=== PATIENT | female | born 1945 | race Caucasian/White ===

== ENCOUNTER 2022-01-05 20:04 | Emergency (ER) | payer OTHER, MEDICAID ==
[~2022-01-05] VITALS: Ht 152.4 cm; Wt 50.0 kg
[~2022-01-05 20:04] MED LIST: ARIP10TA9 PO; ASPI325T8 PO; ASPI81TA50 PO; BACL20TA PO; CALC500T31 PO; CETI10TA74 PO; CLON0.5T PO; CLON1PAT6 TD; DICY20TA PO; DILT120T3 PO; DILT360C PO; DIPH25CA58 PO; DOCU-109 PO; DRON2.5C PO; DRON400T6 PO; DULO60CA7 PO; ESOM40CA PO; FENT1PAT89 TD; FOLI1TAB16 PO; GLYC15DR2 OP; GLYC1SUP23 RC; HYDR-2867 PO; HYDROCORTISONE28 G1 TP; IBUP-1007 PO; IBUP-1027 PO; IBUP-1739 PO; LAMO100T5 PO; LISI20TA18 PO; MAGN296S68 PO; MENT118G TP; METO50TA6 PO; MIRT-36 PO; MULT-245 PO; OMEP20TA8 PO; ONDA4TAB7 PO; OXYC10TA46 PO; OXYC15TA22 PO; PANT40TA77 PO; POLY17PO29 PO; PROM25TA10 PO; QUET25TA5 PO; ROPI1TAB PO; SIME80TA14 PO; SODI30SP NS; TRAZ-118 PO; [UNRECOGNIZED DRUG - CODE] MC
[2022-01-05] MEDS ORDERED: traMADol 50 MG TABLET PO ONE (20:30)
--- NOTE | 2022-01-05 20:37 | PHYS DOC ---
Past Medical History Past Medical History: A-Fib, Anemia, Anxiety, Arthritis, Bipolar, CAD, Co nstipation, Depression, Diverticulitis, GERD, High Cholesterol, Hypertension, Hypothyroid, IBS, Other Additional Past Medical Histor: insomnia,myalgia nos,paranoia,agoraphobia,hypokalemia,RLS,ulcerative coliti Past Surgical History: Appendectomy, , Hysterectomy, Other Additional Past Surgical Histo: Bilat rotator cuff,mult ovarian cysts,colon polyps,D&C x3, Smoking Status: Former Smoker Alcohol Use: None Drug Use: None General Adult EDM: Chief Complaint: BACK PAIN OR INJURY HPI: HPI: Patient is a 76 year old female who presents with here from [facility] after she was in the restroom with nursing staff and she states that her legs gave out in she had a controlled fall. She states that she fell onto her bottom and did not hit her head. She complains of right lower back pain with sharp shooting pain that goes down into the leg. She states that she usually uses a wheelchair to get around due to weakness in her legs. She denies hitting her head, abdominal pain, nausea, vomiting, fever, loss of bowel bladder, urinary symptoms, chest pain, shortness of air, dizziness, headache, syncope, focal weakness, new numbness or tingling. Rates her pain a 7 out of 10 at this time. Patient has a history of A. fib, anemia, anxiety, arthritis, bipolar, CAD, depression, diverticulitis, GERD, high cholesterol, hypertension, hypothyroidism, IBS, appendectomy, , hysterectomy, insomnia, myalgia, paranoia, RLS, hypokalemia, ulcerative colitis, agoraphobia. Review of Systems: Review of Systems: Constitutional: Denies fever or chills. [] Eyes: Denies change in visual acuity. [] HENT: Denies nasal congestion or sore throat. [] Respiratory: Denies cough or shortness of breath. [] Cardiovascular: Denies chest pain or edema. [] GI: Denies abdominal pain, nausea, vomiting, bloody stools or diarrhea. [] : Denies dysuria. [] Musculoskeletal: + Right lower back pain or + right hip joint pain. + Sharp shooting into the right leg pain [] Integument: Denies rash. [] Neurologic: Denies headache, focal weakness or sensory changes. [] Endocrine: Denies polyuria or polydipsia. [] Lymphatic: Denies swollen glands. [] Psychiatric: Denies depression or anxiety. [] Heart Score: C/O Chest Pain: No Current Medications: Current Medications Medications (Trade) Dose Ordered Sig/Eva Start Time Stop Time Status Last Admin Dose Admin Tramadol HCl (Ultram) 50 mg 1X ONCE 01/05/22 20:30 01/05/22 20:31 Allergies: Allergies: Allergies Coded Allergies Type Severity Reaction Last Updated Verified Sulfa (Sulfonamide Antibiotics) Allergy Intermediate 02/23/17 Yes codeine Allergy Intermediate 02/23/17 Yes gold Au 198 Allergy Intermediate 07/31/14 Yes loracarbef Allergy Intermediate 02/23/17 Yes meloxicam Allergy Intermediate 02/23/17 Yes fentanyl Allergy Mild N/V 02/26/17 Yes Pentazocine Lactate Adverse Reaction Intermediate "dizzy" 07/31/14 Yes acetaminophen Adverse Reaction Intermediate liver does not tolerate 07/31/14 Yes clopidogrel bisulfate Adverse Reaction Intermediate bruising 07/31/14 Yes epinephrine Adverse Reaction Intermediate Palpitations 07/31/14 Yes ferrous sulfate Adverse Reaction Intermediate unable to take due to hemochromatosis 07/31/14 Yes gabapentin Adverse Reaction Intermediate "contracts my muscles" 07/31/14 Yes metoclopramide HCl Adverse Reaction Intermediate Nausea and Vomiting 07/31/14 Yes morphine Adverse Reaction Intermediate hallucinations 07/31/14 Yes naproxen Adverse Reaction Intermediate Nausea 07/31/14 Yes Physical Exam: PE: Constitutional: Well developed, well nourished, no acute distress, non-toxic appearance. [] HENT: Normocephalic, atraumatic, bilateral external ears normal, oropharynx moist, no oral exudates, nose normal. [] Eyes: PERRLA, EOMI, conjunctiva normal, no discharge. [] Neck: Normal range of motion, no tenderness, supple, no stridor. [] Cardiovascular:Heart rate regular rhythm, no murmur [] Lungs & Thorax: Bilateral breath sounds clear to auscultation [] Abdomen: Bowel sounds normal, soft, no tenderness, no masses, no pulsatile masses. [] Skin: Warm, dry, no erythema, no rash. [] Back: Right lower back tenderness, no CVA tenderness. [] Extremities: No tenderness, no cyanosis, no clubbing, ROM intact, no edema. [] Neurologic: Alert and oriented X 3, normal motor function, normal sensory function, no focal deficits noted. [] Psychologic: Affect normal, judgement normal, mood normal. [] Current Patient Data: Vital Signs: Vital Signs Date Time Temp Pulse Resp B/P (MAP) Pulse Ox O2 Delivery O2 Flow Rate FiO2 01/05/22 20:10 98.3 70 16 159/71 (100) 93 Room Air 98.3 EKG: EK and read by Dr Epps as Sinus Rhythm and no STEMI Radiology/Procedures: Radiology/Procedures: [] Impression: [facility] [address] [place], [place] [id number] IMAGING REPORT Signed PATIENT: LEILANI SANTANA ACCOUNT: [id number] : 1945 LOCATION: ER AGE: 76 SEX: F EXAM STATUS: REG ER ORD. PHYSICIAN: CHELLY RUBIO APRN REASON: FALL, BACK PAIN PROCEDURE: CT HEAD AND CERVICAL SPINE WO Exam: CT head and cervical spine without contrast INDICATION: Fall, back pain TECHNIQUE: Sequential axial images through the head and cervical spine were obtained without the administration of IV contrast. Exposure: One or more of the following in the visualized dose reduction techniques were utilized for this examination: 1. Automated exposure control 2. Adjustment of the MA and/or KV according to patient size 3. Use of iterative of reconstructive technique Comparisons: None FINDINGS: Head No focal parenchymal lesion or hemorrhage is identified. There is no midline shift or sulcal effacement. Moderate patchy hypodensity in the periventricular white matter. No acute vascular territory infarction is identified. Valerio-white distinction is preserved. The ventricular system is within normal limits without compression hydrocephalus. The basal cisterns are well maintained. The visualized portions of the paranasal sinuses and mastoid air cells are well- pneumatized. No acute fractures. Cervical spine: Posterior cervical fusion hardware noted throughout cervical spine with diffuse laminectomy changes. Vertebral body heights and alignment are well-maintained. Fracture to the cervical spine is not identified. No significant change in cervical spine. Visualized paraspinal soft tissues are unremarkable. IMPRESSION: 1. No acute intracranial abnormality. 2. Negative CT C-spine for acute traumatic injury. Electronically signed by: Cassie Llanos MD (01/05/2022 9:02 PM) [facility] DICTATED and SIGNED BY: CASSIE LLANOS MD DATE: 01/05/[id number] [id number] [place] [address] IMAGING REPORT Signed PATIENT: LEILANI SANTANA ACCOUNT: [id number] : 1945 LOCATION: ER AGE: 76 SEX: F EXAM STATUS: REG ER ORD. PHYSICIAN: CHELLY RUBIO APRN REASON: fall, pain PROCEDURE: HIP BILATERAL WITH PELVIS Pelvis and right hip HISTORY: Pain status post fall AP view the pelvis was obtained as well as AP and frog-leg views right hip There is deformity of the pubic rami bilaterally consistent with old injuries. There is no interpolar cortex suggest acute fracture. The femoral and acetabular relationships are normal. There is gross osteopenia which does limit sensitivity for a possible nondisplaced fracture. IMPRESSION: No acute findings. Electronically signed by: Elvira Ott III, MD (01/05/2022 9:09 PM) [facility] DICTATED and SIGNED BY: ELVIRA OTT III, MD DATE: 01/05/[id number] [address] [id number] IMAGING REPORT Signed PATIENT: LEILANI SANTANA ACCOUNT: [id number] : 1945 LOCATION: ER AGE: 76 SEX: F EXAM STATUS: REG ER ORD. PHYSICIAN: CHELLY RUBIO APRN REASON: fall, pain PROCEDURE: CT LUMBAR SPINE WO CONTRAST Exam: CT of lumbar spine without contrast INDICATION: Fall, pain TECHNIQUE: Sequential axial images through the lumbar spine obtained without IV contrast. Sagittal and coronal reformatted images were reconstructed from the axial data and reviewed. Exposure: One or more of the following in the visualized dose reduction techniques were utilized for this examination: 1. Automated exposure control 2. Adjustment of the MA and/or KV according to patient size 3. Use of iterative of reconstructive technique Comparisons: CT 02/23/2017 FINDINGS: There is a levoconvex curvature lumbar spine. Vertebral body heights are well- maintained. Fracture to the lumbar spine is not identified. Laminectomy changes noted at L2-L5. Multilevel spondylotic change in cervical spine with degenerative disc disease greatest at L2-L3, L3-L4 and L5-S1. Mild bilateral facet arthropathy is noted throughout the lumbar spine. Visualized paraspinal soft tissues are unremarkable. IMPRESSION: Negative CT lumbar spine for acute traumatic injury. Electronically signed by: Cassie Llanos MD (01/05/2022 9:10 PM) [facility] DICTATED and SIGNED BY: CASSIE LLANOS MD DATE: 01/05/[id number] 0 Course & Med Decision Making: Course & Med Decision Making Pertinent Labs and Imaging studies reviewed. (See chart for details) See HPI. Alert and oriented x4. No pain with pelvic rock. No focal bony spinal tenderness. No trauma to the head or face or scalp. Full range of motion the neck without any current pain. No focal weakness. No extremity rotation or shortening. Right lower back tenderness paraspinal. No bruising or trauma seen. X-ray showed no acute findings. CT head and C-spine showed no acute findings. Blood work generally unremarkable. Urinalysis shows no infection. Patient is discharged back to her facility. [] Dragon Disclaimer: Dragon Disclaimer: This electronic medical record was generated, in whole or in part, using a voice recognition dictation system. Departure Departure Impression: Primary Impression: Fall Qualified Codes: W19.XXXA - Unspecified fall, initial encounter Additional Impression: Low back pain Qualified Codes: M54.41 - Lumbago with sciatica, right side Disposition: 01 HOME / SELF CARE / HOMELESS Condition: STABLE Referrals: FELIPE BEASLEY MD (PCP) Patient Instructions: Fall Prevention and Home Safety, Low Back Strain with [facility], Sciatica with [facility] Additional Instructions: Follow-up with primary care provider. Drink plenty of fluids. Take medication as prescribed and with food. If you have sudden loss of bowel and bladder or numbness and tingling or focal weakness on one side return to the emergency room. Scripts Tramadol Hcl (TRAMADOL HCL) 50 Mg Tablet 50 MG PO Q8HRS PRN for PAIN, #10 TAB Prov: CHELLY RUBIO APRN 01/05/22 CHELLY RUBIO APRN Jan 05, 2022 20:37
--- NOTE | 2022-01-05 21:04 | RAD ---
Exam: CT head and cervical spine without contrast INDICATION: Fall, back pain TECHNIQUE: Sequential axial images through the head and cervical spine were obtained without the admi nistration of IV contrast. Exposure: One or more of the following in the visualized dose reduction techniques were utilized for this examination: 1. Automated exposure control 2. Adjustment of the MA and/or KV according to patient size 3. Use of iterative of reconstructive technique Comparisons: None FINDINGS: Head No focal parenchymal lesion or hemorrhage is identified. There is no midline shift or sulcal effaceme nt. Moderate patchy hypodensity in the periventricular white matter. No acute vascular territory infarcti on is identified. Valerio-white distinction is preserved. The ventricular system is within normal limits without compression hydrocephalus. The basal cisterns are well maintained. The visualized portions of the paranasal sinuses and mastoid air cells are well-pneumatized. No acute fractures. Cervical spine: Posterior cervical fusion hardware noted throughout cervical spine with diffuse laminectomy changes. Vertebral body heights and alignment are well-maintained. Fracture to the cervical spine is not identified. No significant change in cervical spine. Visualized paraspinal soft tissues are unremarkable. IMPRESSION: 1. No acute intracranial abnormality. 2. Negative CT C-spine for acute traumatic injury. Electronically signed by: Cassie Pelaez MD (01/05/2022 9:02 PM) [facility]
--- NOTE | 2022-01-05 21:11 | RAD ---
Pelvis and right hip HISTORY: Pain status post fall AP view the pelvis was obtained as well as AP and frog-leg views right hip There is deformity of the pubic rami bilaterally consistent with old injuries. There is no interpolar cortex suggest acute fracture. The femoral and acetabular relationships are normal. There is gross o steopenia which does limit sensitivity for a possible nondisplaced fracture. IMPRESSION: No acute findings. Electronically signed by: Vitaly Light III, MD (01/05/2022 9:09 PM) [facility]
--- NOTE | 2022-01-05 21:12 | RAD ---
Exam: CT of lumbar spine without contrast INDICATION: Fall, pain TECHNIQUE: Sequential axial images through the lumbar spine obtained without IV contrast. Sagittal an d coronal reformatted images were reconstructed from the axial data and reviewed. Exposure: One or more of the following in the visualized dose reduction techniques were utilized for this examination: 1. Automated exposure control 2. Adjustment of the MA and/or KV according to patient size 3. Use of iterative of reconstructive technique Comparisons: CT 02/23/2017 FINDINGS: There is a levoconvex curvature lumbar spine. Vertebral body heights are well-maintained. Fracture to the lumbar spine is not identified. Laminectomy changes noted at L2-L5. Multilevel spondylotic change in cervical spine with degenerative disc disease greatest at L2-L3, L3-L4 and L5-S1. Mild bilateral facet arthropathy is noted throughou t the lumbar spine. Visualized paraspinal soft tissues are unremarkable. IMPRESSION: Negative CT lumbar spine for acute traumatic injury. Electronically signed by: Cassie Pelaez MD (01/05/2022 9:10 PM) [facility]
[2022-01-05 21:23] LABS: BASO # 0.1 x10^3/uL (0.0-0.2); BASO % 1 % (0-3); EOS # 0.5 x10^3/uL (0.0-0.7); EOS % 7 % (0-3); HEMATOCRIT 36.2 % (36.0-47.0); HEMOGLOBIN 11.6 g/dL (12.0-15.5); LYMPH # 1.5 x10^3/uL (1.0-4.8); LYMPH % 20 % (24-48); MEAN CORPUSCULAR HEMOGLOBIN 32 pg (25-35); MEAN CORPUSCULAR HGB CONC 32 g/dL (31-37); MEAN CORPUSCULAR VOLUME 100 fL (79-100); MONO # 0.6 x10^3/uL (0.0-1.1); MONO % 8 % (0-9); NEUT # 4.8 x10^3/uL (1.8-7.7); NEUT % 64 % (31-73); PLATELET COUNT 245 x10^3/uL (140-400); RED BLOOD COUNT 3.62 x10^6/uL (3.50-5.40); RED CELL DISTRIBUTION WIDTH 15.4 % (11.5-14.5); WHITE BLOOD COUNT 7.5 x10^3/uL (4.0-11.0)
[2022-01-05 21:30] VITALS: BP 171/74
[2022-01-05 21:34] LABS: CALCIUM 8.3 mg/dL (8.5-10.1); CREATININE 1.1 mg/dL (0.6-1.0); GFR 48.2; POTASSIUM 4.8 mmol/L (3.5-5.1)
[2022-01-05 21:38] LABS: ALBUMIN 3.3 g/dL (3.4-5.0); TOTAL BILIRUBIN 0.2 mg/dL (0.2-1.0); TOTAL PROTEIN 6.5 g/dL (6.4-8.2)
[2022-01-05 21:40] LABS: CLARITY,URINE CLEAR; COLOR,URINE YELLOW
[2022-01-05 21:41] LABS: BILIRUBIN,URINE NEGATIVE (NEG); NITRITE,URINE NEGATIVE (NEG); PROTEIN,URINE NEGATIVE (NEG-TRACE)
[2022-01-05 21:42] LABS: BACTERIA,URINE 0 /HPF (0-FEW); HYALINE CASTS, URINE FEW /HPF; RBC,URINE OCC /HPF (0-2); WBC,URINE OCC /HPF (0-4)
[2022-01-05] MEDS ORDERED: TRAM50TA PO (22:01)
[2022-01-05] MEDS ORDERED: methylPREDNISolone SOD SUCC PF 125 MG/2 ML VIAL. IV ONE (22:30)
--- NOTE | 2022-01-07 07:28 | EKG ---
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
== END 2022-01-05 22:53 | disposition home or self-care (01) ==
LOC: ER 20:04
DX: M54.41 Lumbago with sciatica, right side (principal); M25.551 Pain in right hip; I48.91 Unspecified atrial fibrillation; F31.9 Bipolar disorder, unspecified; I25.10 Atherosclerotic heart disease of native coronary artery without angina pectoris; K21.9 Gastro-esophageal reflux disease without esophagitis; E03.9 Hypothyroidism, unspecified; E78.00 Pure hypercholesterolemia, unspecified; I10 Essential (primary) hypertension; K58.9 Irritable bowel syndrome, unspecified; Z87.891 Personal history of nicotine dependence; Z90.89 Acquired absence of other organs; Z90.710 Acquired absence of both cervix and uterus; G25.81 Restless legs syndrome; Z88.2 Allergy status to sulfonamides; Z88.1 Allergy status to other antibiotic agents; Z88.4 Allergy status to anesthetic agent; Z88.5 Allergy status to narcotic agent; Z88.8 Allergy status to other drugs, medicaments and biological substances
CPT/HCPCS: 36415; 70450; 72125; 72131; 73521; 80053; 81001; 84484; 85025; 93005; 99285-25

== ENCOUNTER 2022-01-19 13:54 | Inpatient (IN) | payer OTHER, MEDICAID ==
[2022-01-19] VITALS (24 sets, daily range): BP systolic 84–143; BP diastolic 38–64
[~2022-01-19] VITALS: Ht 152.4 cm; Wt 44.8 kg
[~2022-01-19 13:54] MED LIST changes: +TRAM50TA PO
--- NOTE | 2022-01-19 14:31 | PHYS DOC ---
Past Medical History Past Medical History: A-Fib, Anemia, Anxiety, Arthritis, Bipolar, CAD, Co nstipation, Depression, Diverticulitis, GERD, High Cholesterol, Hypertension, Hypothyroid, IBS, Other Additional Past Medical Histor: insomnia,myalgia nos,paranoia,agoraphobia,hypokalemia,RLS,ulcerative coliti Past Surgical History: Appendectomy, , Hysterectomy, Other Additional Past Surgical Histo: Bilat rotator cuff,mult ovarian cysts,colon polyps,D&C x3, Smoking Status: Never Smoker Alcohol Use: None Drug Use: None General Adult EDM: Chief Complaint: DYSPNEA/RESPIRATORY DISTRESS HPI: HPI: Patient is a 76 year old female brought in by EMS from healthcare resort [facility] for respiratory failure. Per EMS, the staff told him that the patient became unresponsive with respiratory distress within the last hour. She has been at this facility for about 2 days. The patient is unresponsive on arrival, I am unable to procure any meaningful information from her directly. I was ultimately able to speak with her brother via phone after resuscitation efforts were completed, and he reports that she had presented to her primary care doctor's office at [facility] for routine appointment, she fell out of the wheelchair, sustained some musculoskeletal injuries and then was admitted to the hospital, she was subsequently sent to rehab after that. He is unsure of what her hospital course was at that time. She was seen here for a fall and discharged home in late December. She reportedly had previously lived at home alone. Other review of systems is unobtainable or significantly limited. Review of Systems: Review of Systems: Review of systems is limited and essentially unobtainable secondary to clinical condition. Please see HPI. Heart Score: C/O Chest Pain: N/A Risk Factors: Risk Factors: DM, Current or recent (<one month) smoker, HTN, HLP, family history of CAD, obesity. Risk Scores: Score 0 - 3: 2.5% MACE over next 6 weeks - Discharge Home Score 4 - 6: 20.3% MACE over next 6 weeks - Admit for Clinical Observation Score 7 - 10: 72.7% MACE over next 6 weeks - Early Invasive Strategies Allergies: Allergies: Allergies Coded Allergies Type Severity Reaction Last Updated Verified Sulfa (Sulfonamide Antibiotics) Allergy Intermediate 02/23/17 Yes codeine Allergy Intermediate 02/23/17 Yes gold Au 198 Allergy Intermediate 07/31/14 Yes loracarbef Allergy Intermediate 02/23/17 Yes meloxicam Allergy Intermediate 02/23/17 Yes fentanyl Allergy Mild N/V 02/26/17 Yes Pentazocine Lactate Adverse Reaction Intermediate "dizzy" 07/31/14 Yes acetaminophen Adverse Reaction Intermediate liver does not tolerate 07/31/14 Yes clopidogrel bisulfate Adverse Reaction Intermediate bruising 07/31/14 Yes epinephrine Adverse Reaction Intermediate Palpitations 07/31/14 Yes ferrous sulfate Adverse Reaction Intermediate unable to take due to hemochromatosis 07/31/14 Yes gabapentin Adverse Reaction Intermediate "contracts my muscles" 07/31/14 Yes metoclopramide HCl Adverse Reaction Intermediate Nausea and Vomiting 07/31/14 Yes morphine Adverse Reaction Intermediate hallucinations 07/31/14 Yes naproxen Adverse Reaction Intermediate Nausea 07/31/14 Yes Physical Exam: PE: Constitutional: Unresponsive, respiratory failure, moribund and acutely ill- appearing HENT: Normocephalic, atraumatic, mucous membranes are tacky. Oropharynx is patent, minimal gag reflex Eyes: Pulls are small but equally, sluggish. No scleral icterus. Conjunctive are pale Neck: [employer] is midline. No meningismus. Cardiovascular:Heart rate regular rhythm, equal bilateral femoral and carotid pulses. Cap refill is delayed bilateral feet and hands. Lungs & Thorax: Agonal respirations on arrival, respiratory failure. No evidence of chest wall trauma noted. Occasional gagging and gurgling respirations. After intubation, bilateral breath sounds are noted. Coarse breath sounds in the right middle lobe and right upper lobes. Equal chest rise. No crepitus or subcutaneous emphysema of the chest or thorax Abdomen: Linda is soft, nondistended, no apparent tenderness to palpation Skin: Skin is pale, poorly perfused, cap refill is delayed. No large open wounds. Back: No deformity, no evidence of acute trauma. Extremities: No deformity, no edema, pelvis is stable. There appears to be a healing bruise of the proximal right humerus and right shoulder, no apparent tenderness to palpation. No evidence of any acute injury or trauma. Neurologic: She is unresponsive, no spontaneous eye opening, no purposeful movement, minimal gag reflex, no evidence of facial asymmetry, she initially does not even localize to pain, after intubation and airway resuscitation, she does appear to localize to pain, sensation appears to be intact, no meaningful verbal responses ever provided. She does appear to move all 4 extremities equally after resuscitation. Psychologic: Unresponsive EKG: EKG: EKG is interpreted at 1724 Rhythm is sinus Rate is 69 bpm [place] is left No STEMI Radiology/Procedures: Radiology/Procedures: IMAGING REPORT Signed PATIENT: LEILANI SANTANA ACCOUNT: [id number] : 1945 LOCATION: ER AGE: 76 SEX: F EXAM STATUS: PRE ER ORD. PHYSICIAN: BETSEY DURAN DO REASON: TUBE PLACEMENT PROCEDURE: PORTABLE CHEST 1V EXAMINATION: XR CHEST 1V. HISTORY: 76 years Female tube placement. . COMPARISON: February 23, 2017. Findings: There is an ET tube placed in good position. The NG tube appears to be coiled within the stomach and terminates in the in the distal stomach. It can be pulled out by 10 cm. There is a right perihilar infiltrate and right basilar atelectasis. There is fullness in the right hilum.The heart size is normal. There is no effusion or pneumothorax. The mediastinum appear unremarkable. Impression: 1. ET tube is in good position. NG tube is in the distal stomach with the loop within the stomach. It can be pulled by 10 cm. 2. Right perihilar infiltrate and basilar atelectasis. There is fullness in the right hilum. Underlying mass or right hilar lymphadenopathy is not excluded. Consider CT chest evaluation with the patient is stable. Electronically signed by: Elvira Ashby MD (01/19/2022 2:32 PM) [id number] DICTATED and SIGNED BY: ELVIRA ASHBY MD DATE: 01/19/22 [id number] 0 Course & Med Decision Making: Course & Med Decision Making Pertinent Labs and Imaging studies reviewed. (See chart for details) The patient is intubated shortly after arrival. Please see associated intubation note for details. There are copious yellow oral and airway secretions that were suctioned. Peripheral IV access was established. She is given multiple IV fluid boluses. She did not produce urine for quite some time, but she finally did produce some urine after 3 L of fluid. Please see associated central venous catheter placement note for details. The patient remained hypotensive, despite fluids. She is started on IV Levophed drip. Empiric antibiotics were ordered, and I had initially ordered IV Zosyn. Pharmacy called and stated that there was a possible contraindication with the questionable Carbapenem allergy that the patient had listed previously. I am unable to corroborate this with the patient. IV cefepime and Flagyl were ordered instead. I contacted Dr. Holden for admission. He accepts the patient. I contacted the patient's brother and informed him of her clinical condition. He affirms full CODE STATUS. He verbalizes understanding of the plan of care and of her clinical condition. Dragon Disclaimer: Dragon Disclaimer: This electronic medical record was generated, in whole or in part, using a voice recognition dictation system. CENTRAL LINE INSERTION: Occupation of Inseamer: Attending Physician PICC Insurance Producer?: No Line exchanged over guidewire?: Yes Central Line Indications: Poor peripheral access, Caustic medication Hand Hygiene Performed?: Yes Maximal sterile barriers used: Mask, Sterile gown, Sterile gloves, Large sterile drape, Cap Skin Preperation: (Check All): Chlorhexidine gluconate Prep dry @ skin punture?: Yes Patient is less than 2 months: No Known allergy to CHG?: No Safety concern in premature in: No Insertion Site: Femoral Antimicrobial catheter used?: Yes Central Line catheter type: Other (specify): (triple lumen CVC) Successful Placement?: Yes Departure Departure Impression: Primary Impression: Acute respiratory failure Additional Impressions: Aspiration pneumonia Hypotension Disposition: 09 ADMITTED INPATIENT Admitting Physician: JOE (Dr. Holden) Condition: CRITICAL Referrals: FELIPE BEASLEY MD (PCP) Intubation Procedure Intubation Procedure Intub Indication: Respiratory failure Consent: Unable to give consent due to emergent nature. Medications Used: see nursing note Procedure: The patient was placed in the appropriate position. She was preoxygenated as much as possible. Intubation was formed using direct laryngoscopy, using a 3-0 Audrey laryngoscope blade. A 7.0 endotracheal tube was used for intubation, the tube was visualized passing through the cords. Initial confirmation of placement included bilateral breath sounds, tube fogging, adequate chest rise, adequate pulse oximetry reading. A chest x-ray to verify correct placement of the tube showed appropriate tube position. The patient tolerated the procedure well. Complications: none. BETSEY DURAN DO Jan 19, 2022 14:31
--- NOTE | 2022-01-19 14:34 | RAD ---
EXAMINATION: XR CHEST 1V. HISTORY: 76 years Female tube placement. . COMPARISON: February 23, 2017. Findings: There is an ET tube placed in good position. The NG tube appears to be coiled within the st omach and terminates in the in the distal stomach. It can be pulled out by 10 cm. There is a right perihilar infiltrate and right basilar atelectasis. There is fullness in the right h ilum.The heart size is normal. There is no effusion or pneumothorax. The mediastinum appear unremarkable. Impression: 1. ET tube is in good position. NG tube is in the distal stomach with the loop within the stomach. It can be pulled by 10 cm. 2. Right perihilar infiltrate and basilar atelectasis. There is fullness in the right hilum. Underlyi ng mass or right hilar lymphadenopathy is not excluded. Consider CT chest evaluation with the patient is stable. Electronically signed by: Julian Ashby MD (01/19/2022 2:32 PM) [id number]
[2022-01-19] MEDS ORDERED: NALOXONE 0.4 MG/ML VIAL. IV ONE ×2 (14:45)
[2022-01-19] MEDS ORDERED: CEFEPIME HCL IV Push 1 GM VIAL. IVP ONE (14:45)
[2022-01-19] MEDS ORDERED: IV NORMAL SALINE 1000ML BAG 1,000 ML IV ONE ×3 (14:45→16:45)
[2022-01-19] MEDS ORDERED: PIPERACILLIN/TAZOBACTAM 3.375 GM in IV NORMAL SALINE 50ML 50 ML IV ONE (14:45)
[2022-01-19] MEDS ORDERED: ETOMIDATE 20 MG/10 ML VIAL. IV ONE (14:45)
[2022-01-19 14:46] LABS: BASO % 0 % (0-3); EOS % 0 % (0-3); HEMATOCRIT 37.7 % (36.0-47.0); HEMOGLOBIN 12.2 g/dL (12.0-15.5); LYMPH # 1.2 x10^3/uL (1.0-4.8); LYMPH % 14 % (24-48); MEAN CORPUSCULAR HEMOGLOBIN 33 pg (25-35); MEAN CORPUSCULAR HGB CONC 32 g/dL (31-37); MEAN CORPUSCULAR VOLUME 102 fL (79-100); MONO # 0.2 x10^3/uL (0.0-1.1); MONO % 3 % (0-9); NEUT # 7.1 x10^3/uL (1.8-7.7); NEUT % 83 % (31-73); PLATELET COUNT 274 x10^3/uL (140-400); RED BLOOD COUNT 3.71 x10^6/uL (3.50-5.40); RED CELL DISTRIBUTION WIDTH 14.2 % (11.5-14.5); WHITE BLOOD COUNT 8.6 x10^3/uL (4.0-11.0)
[2022-01-19 14:53] LABS: BASE EXCESS ABG -4 mmol/L (-3-3); HCO3 ABG 24 mmol/L (21-28); PO2 ABG 84 mmHg (65-108); SAT O2 ABG 93 % (92-99)
[2022-01-19 14:54] LABS: PCO2 ABG 60 mmHg (35-46)
[2022-01-19 14:56] LABS: CALCIUM 8.7 mg/dL (8.5-10.1); CREATININE 1.9 mg/dL (0.6-1.0); GFR 25.6; POTASSIUM 4.5 mmol/L (3.5-5.1)
[2022-01-19 14:59] LABS: PROTHROMBIN TIME PATIENT 17.3 SEC (11.7-14.0)
[2022-01-19 15:03] LABS: ALBUMIN/GLOBULIN RATIO 0.9 (1.0-1.7); MAGNESIUM 2.6 mg/dL (1.8-2.4); TOTAL BILIRUBIN 0.8 mg/dL (0.2-1.0); TOTAL PROTEIN 6.2 g/dL (6.4-8.2)
[2022-01-19] MEDS ORDERED: MIDAZOLAM HCL/PF 5 MG/5 ML VIAL. IVP ONE (16:15)
[2022-01-19] MEDS ORDERED: MIDAZOLAM HCL/PF 5 MG/5 ML VIAL. NS ONE (16:15)
[2022-01-19] MEDS: NOREPINEPHRINE VIAL 8 MG in IV DEXTROSE 5% 250 ML IV PRN (16:56)
[2022-01-19 17:15] LABS: BILIRUBIN,URINE SMALL (NEG); CLARITY,URINE HAZY; COLOR,URINE YELLOW; NITRITE,URINE NEGATIVE (NEG); PH,URINE 5.5 (<5.0-8.0); PROTEIN,URINE >=300 mg/dL (NEG-TRACE)
[2022-01-19 17:17] LABS: HYALINE CASTS, URINE MANY /HPF
[2022-01-19 17:22] LABS: BACTERIA,URINE 0 /HPF (0-FEW); RBC,URINE 0 /HPF (0-2); WBC,URINE >40 /HPF (0-4)
[2022-01-19 17:36] LABS: BASE EXCESS ABG -4 mmol/L (-3-3); HCO3 ABG 22 mmol/L (21-28); PCO2 ABG 48 mmHg (35-46); PO2 ABG 71 mmHg (65-108); SAT O2 ABG 91 % (92-99)
--- NOTE | 2022-01-19 18:31 | NUR ---
PATIENT ARRIVED FROM ED AT 1814. PATIENT ON LEVO GTT, VENT, OG, ROJAS, MONITOR APPLIED.
[2022-01-19] MEDS ORDERED: IOHEXOL 300 MG/ML 100ML VIAL. IV ONE (18:45)
--- NOTE | 2022-01-19 19:04 | PDOC1 ---
History and Physical Date of Service: DOS: DATE: 01/19/22 TIME: 19:04 Chief Complaint: Chief Complain: respiratory failure History of Present Illness: HPI: Patient was intubated and sedated by the time is able to evaluate her thus history from emergency Patient is a 76 year old female brought in by EMS from [facility] for respiratory failure. Per EMS, the staff told him that the patient became unresponsive with respiratory distress within the last hour. She has been at this facility for about 2 days. The patient is unresponsive on arrival, I am unable to procure any meaningful information from her directly. I was ultimately able to speak with her brother via phone after resuscitation efforts were completed, and he reports that she had presented to her primary care doctor's office at [facility] for routine appointment, she fell out of the wheelchair, sustained some musculoskeletal injuries and then was admitted to the hospital, she was subsequently sent to rehab after that. He is unsure of what her hospital course was at that time. She was seen here for a fall and discharged home in late December. She reportedly had previously lived at home alone. Other review of systems is unobtainable or significantly limited. Patient required intubation in the ER. High concern for aspiration pneumonia. Started on broad-spectrum antibiotics Past Medical/Surgical History: PMH/PSH: Past Medical History: A-Fib, Anemia, Anxiety, Arthritis, Bipolar, CAD, Constipation, Depression, Diverticulitis, GERD, High Cholesterol, Hypertension, Hypothyroid, IBS, Other Additional Past Medical Histor: insomnia,myalgia nos,paranoia,agoraphobia,hypokalemia,RLS,ulcerative coliti Past Surgical History: Appendectomy, , Hysterectomy, Other Additional Past Surgical Histo: Bilat rotator cuff,mult ovarian cysts,colon polyps,D&C x3, Smoking Status: Never Smoker Alcohol Use: None Drug Use: None Allergies: Allergies: Coded Allergies: Sulfa (Sulfonamide Antibiotics) (Verified Allergy, Intermediate, 02/23/17) codeine (Verified Allergy, Intermediate, 02/23/17) gold Au 198 (Verified Allergy, Intermediate, 07/31/14) METALS-TESTED AND FOUND ALLERGY TO GOLD loracarbef (Verified Allergy, Intermediate, 02/23/17) meloxicam (Verified Allergy, Intermediate, 02/23/17) fentanyl (Verified Allergy, Mild, N/V, 02/26/17) Pentazocine Lactate (Verified Adverse Reaction, Intermediate, "dizzy", 07/31/14) acetaminophen (Verified Adverse Reaction, Intermediate, liver does not tolerate, 07/31/14) clopidogrel bisulfate (Verified Adverse Reaction, Intermediate, bruising, 07/31/14) epinephrine (Verified Adverse Reaction, Intermediate, Palpitations, 07/31/14) ferrous sulfate (Verified Adverse Reaction, Intermediate, unable to take due to hemochromatosis, 07/31/14) gabapentin (Verified Adverse Reaction, Intermediate, "contracts my muscles", 07/31/14) metoclopramide HCl (Verified Adverse Reaction, Intermediate, Nausea and Vomiting, 07/31/14) morphine (Verified Adverse Reaction, Intermediate, hallucinations, 07/31/14) naproxen (Verified Adverse Reaction, Intermediate, Nausea, 07/31/14) Family History: Family History: Cannot obtain from patient Current Medications: Current Medications Current Medications Sodium Chloride 1,000 ml @ 1,000 mls/hr 1X ONCE IV Last administered on 01/19/22at 13:55; Start 01/19/22 at 14:45; Stop 01/19/22 at 15:44; Status DC Sodium Chloride 1,000 ml @ 1,000 mls/hr 1X ONCE IV Last administered on at 14:05; Start 01/19/22 at 14:45; Stop 01/19/22 at 15:44; Status DC Naloxone HCl (Narcan) 0.4 mg 1X ONCE IV Last administered on 01/19/22at 13:55; Start 01/19/22 at 14:45; Stop 01/19/22 at 14:46; Status DC Naloxone HCl (Narcan) 0.4 mg 1X ONCE IV Last administered on 01/19/22at 13:59; Start 01/19/22 at 14:45; Stop 01/19/22 at 14:46; Status DC Etomidate (Amidate) 20 mg 1X ONCE IV Last administered on 01/19/22at 14:01; Start 01/19/22 at 14:45; Stop 01/19/22 at 14:46; Status DC Piperacillin Sod/ Tazobactam Sod 3.375 gm/Sodium Chloride 50 ml @ 100 mls/hr 1X ONCE IV ; Start 01/19/22 at 14:45; Stop 01/19/22 at 15:14; Status UNV Cefepime HCl (Maxipime) 1 gm 1X ONCE IVP Last administered on 01/19/22at 15:30; Start 01/19/22 at 14:45; Stop 01/19/22 at 14:46; Status DC Metronidazole 100 ml @ 100 mls/hr 1X ONCE IV Last administered on 01/19/22at 16:01; Start 01/19/22 at 14:45; Stop 01/19/22 at 15:44; Status DC Midazolam HCl (Versed) 5 mg 1X ONCE NS Last administered on 01/19/22at 14:21; Start 01/19/22 at 16:15; Stop 01/19/22 at 16:16; Status DC Midazolam HCl (Versed) 5 mg 1X ONCE IVP Last administered on 01/19/22at 16:00; Start 01/19/22 at 16:15; Stop 01/19/22 at 16:16; Status DC Sodium Chloride 1,000 ml @ 1,000 mls/hr 1X ONCE IV Last administered on 01/19/22at 15:10; Start 01/19/22 at 16:45; Stop 01/19/22 at 17:44; Status DC Norepinephrine Bitartrate 8 mg/ Dextrose 258 ml @ 7.082 mls/ hr CONT PRN IV PER PROTOCOL Last administered on 01/19/22at 16:56; Start 01/19/22 at 16:45 Iohexol (Omnipaque 300 Mg/ml) 75 ml 1X ONCE IV ; Start 01/19/22 at 18:45; Stop 01/19/22 at 18:46; Status Cancel Active Scripts Active ROS: Review of Systems Review of System Cannot obtain from patient Physical Exam: Vital Signs: Vital Signs Date Time Temp Pulse Resp B/P (MAP) Pulse Ox O2 Delivery O2 Flow Rate FiO2 01/19/22 18:55 108/44 01/19/22 18:10 99.0 72 95 Ventilator 99.0 01/19/22 13:54 14 Physcial Exam: GEN: Intubated sedated HEENT: Normal cephalic, atraumatic, external auditory canals are patent EYES: Extraocular muscles are intact, pupil are equally round and reactive to light and accommodation MUSCULOSKELETAL: Appears malnourished ENDOCRINE: No thyromegaly was palpated LYMPHATICS: No cervical chain or axillary nodes were noted HEMATOPOIETIC: No bruising NECK: Supple, no JVD, no thyromegaly was noted LUNGS: Decreased air entry throughout HEART: RRR, S1, S2 present. Peripheral pulses intact, no obvious murmurs noted ABDOMEN: Soft, nontender. Positive bowel sounds, no organomegaly, normal bowel sounds EXTREMITIES: Without clubbing, cyanosis, or edema. Pedal pulses intact. Negative Homans sign NEUROLOGIC: Normal speech and tone. A&O x 3, moves all extremities, no obvious focal deficits PSYCHIATRIC: Normal affect, normal mood. Stable SKIN: No ulcerations or rashes, good skin turgor, no jaundice VASCULAR: Good capillary refill, neurovascular bundle appears to be intact Labs: Labs: Laboratory Tests Test 01/19/22 14:05 01/19/22 14:45 01/19/22 17:05 01/19/22 17:23 White Blood Count 8.6 x10^3/uL (4.0-11.0) Red Blood Count 3.71 x10^6/uL (3.50-5.40) Hemoglobin 12.2 g/dL (12.0-15.5) Hematocrit 37.7 % (36.0-47.0) Mean Corpuscular Volume 102 fL (79-100) Mean Corpuscular Hemoglobin 33 pg (25-35) Mean Corpuscular Hemoglobin Concent 32 g/dL (31-37) Red Cell Distribution Width 14.2 % (11.5-14.5) Platelet Count 274 x10^3/uL (140-400) Neutrophils (%) (Auto) 83 % (31-73) Lymphocytes (%) (Auto) 14 % (24-48) Monocytes (%) (Auto) 3 % (0-9) Eosinophils (%) (Auto) 0 % (0-3) Basophils (%) (Auto) 0 % (0-3) Neutrophils # (Auto) 7.1 x10^3/uL (1.8-7.7) Lymphocytes # (Auto) 1.2 x10^3/uL (1.0-4.8) Monocytes # (Auto) 0.2 x10^3/uL (0.0-1.1) Eosinophils # (Auto) 0.0 x10^3/uL (0.0-0.7) Basophils # (Auto) 0.0 x10^3/uL (0.0-0.2) Prothrombin Time 17.3 SEC (11.7-14.0) Prothromb Time International Ratio 1.4 (0.8-1.1) Activated Partial Thromboplast Time 35 SEC (24-38) Sodium Level 142 mmol/L (136-145) Potassium Level 4.5 mmol/L (3.5-5.1) Chloride Level 100 mmol/L (98-107) Carbon Dioxide Level 34 mmol/L (21-32) Anion Gap 8 (6-14) Blood Urea Nitrogen 59 mg/dL (7-20) Creatinine 1.9 mg/dL (0.6-1.0) Estimated GFR (Cockcroft-Gault) 25.6 BUN/Creatinine Ratio 31 (6-20) Glucose Level 141 mg/dL (70-99) Lactic Acid Level 1.8 mmol/L (0.4-2.0) Calcium Level 8.7 mg/dL (8.5-10.1) Magnesium Level 2.6 mg/dL (1.8-2.4) Total Bilirubin 0.8 mg/dL (0.2-1.0) Aspartate Amino Transf (AST/SGOT) 39 U/L (15-37) Alanine Aminotransferase (ALT/SGPT) 33 U/L (14-59) Alkaline Phosphatase 114 U/L (46-116) Troponin I High Sensitivity 24 ng/L (4-50) NV-Cqy-T-Type Natriuretic Peptide 451 pg/mL (0-449) Total Protein 6.2 g/dL (6.4-8.2) Albumin 3.0 g/dL (3.4-5.0) Albumin/Globulin Ratio 0.9 (1.0-1.7) O2 Saturation 93 % (92-99) 91 % (92-99) Arterial Blood pH 7.22 (7.35-7.45) 7.29 (7.35-7.45) Arterial Blood pCO2 at Patient Temp 60 mmHg (35-46) 48 mmHg (35-46) Arterial Blood pO2 at Patient Temp 84 mmHg (65-108) 71 mmHg (65-108) Arterial Blood HCO3 24 mmol/L (21-28) 22 mmol/L (21-28) Arterial Blood Base Excess -4 mmol/L (-3-3) -4 mmol/L (-3-3) FiO2 100% vent 100% vent Urine Collection Type Unknown Urine Color Yellow Urine Clarity Hazy Urine pH 5.5 (<5.0-8.0) Urine Specific [place] 1.020 (1.000-1.030) Urine Protein >=300 mg/dL (NEG-TRACE) Urine Glucose (UA) Negative mg/dL (NEG) Urine Ketones (Stick) Negative mg/dL (NEG) Urine Blood Small (NEG) Urine Nitrite Negative (NEG) Urine Bilirubin Small (NEG) Urine Urobilinogen Dipstick 2.0 mg/dL (0.2 mg/dL) Urine Leukocyte Esterase Small (NEG) Urine RBC 0 /HPF (0-2) Urine WBC >40 /HPF (0-4) Urine Squamous Epithelial Cells Few /LPF Urine Transitional Epithelial Cells Many /LPF Urine Renal Epithelial Cells Occ /LPF Urine Bacteria 0 /HPF (0-FEW) Urine Hyaline Casts Many /HPF Urine Mucus Marked /LPF Laboratory Tests Test 01/19/22 14:05 01/19/22 14:45 01/19/22 17:05 01/19/22 17:23 White Blood Count 8.6 x10^3/uL (4.0-11.0) Red Blood Count 3.71 x10^6/uL (3.50-5.40) Hemoglobin 12.2 g/dL (12.0-15.5) Hematocrit 37.7 % (36.0-47.0) Mean Corpuscular Volume 102 fL (79-100) Mean Corpuscular Hemoglobin 33 pg (25-35) Mean Corpuscular Hemoglobin Concent 32 g/dL (31-37) Red Cell Distribution Width 14.2 % (11.5-14.5) Platelet Count 274 x10^3/uL (140-400) Neutrophils (%) (Auto) 83 % (31-73) Lymphocytes (%) (Auto) 14 % (24-48) Monocytes (%) (Auto) 3 % (0-9) Eosinophils (%) (Auto) 0 % (0-3) Basophils (%) (Auto) 0 % (0-3) Neutrophils # (Auto) 7.1 x10^3/uL (1.8-7.7) Lymphocytes # (Auto) 1.2 x10^3/uL (1.0-4.8) Monocytes # (Auto) 0.2 x10^3/uL (0.0-1.1) Eosinophils # (Auto) 0.0 x10^3/uL (0.0-0.7) Basophils # (Auto) 0.0 x10^3/uL (0.0-0.2) Prothrombin Time 17.3 SEC (11.7-14.0) Prothromb Time International Ratio 1.4 (0.8-1.1) Activated Partial Thromboplast Time 35 SEC (24-38) Sodium Level 142 mmol/L (136-145) Potassium Level 4.5 mmol/L (3.5-5.1) Chloride Level 100 mmol/L (98-107) Carbon Dioxide Level 34 mmol/L (21-32) Anion Gap 8 (6-14) Blood Urea Nitrogen 59 mg/dL (7-20) Creatinine 1.9 mg/dL (0.6-1.0) Estimated GFR (Cockcroft-Gault) 25.6 BUN/Creatinine Ratio 31 (6-20) Glucose Level 141 mg/dL (70-99) Lactic Acid Level 1.8 mmol/L (0.4-2.0) Calcium Level 8.7 mg/dL (8.5-10.1) Magnesium Level 2.6 mg/dL (1.8-2.4) Total Bilirubin 0.8 mg/dL (0.2-1.0) Aspartate Amino Transf (AST/SGOT) 39 U/L (15-37) Alanine Aminotransferase (ALT/SGPT) 33 U/L (14-59) Alkaline Phosphatase 114 U/L (46-116) Troponin I High Sensitivity 24 ng/L (4-50) EM-Zcn-L-Type Natriuretic Peptide 451 pg/mL (0-449) Total Protein 6.2 g/dL (6.4-8.2) Albumin 3.0 g/dL (3.4-5.0) Albumin/Globulin Ratio 0.9 (1.0-1.7) O2 Saturation 93 % (92-99) 91 % (92-99) Arterial Blood pH 7.22 (7.35-7.45) 7.29 (7.35-7.45) Arterial Blood pCO2 at Patient Temp 60 mmHg (35-46) 48 mmHg (35-46) Arterial Blood pO2 at Patient Temp 84 mmHg (65-108) 71 mmHg (65-108) Arterial Blood HCO3 24 mmol/L (21-28) 22 mmol/L (21-28) Arterial Blood Base Excess -4 mmol/L (-3-3) -4 mmol/L (-3-3) FiO2 100% vent 100% vent Urine Collection Type Unknown Urine Color Yellow Urine Clarity Hazy Urine pH 5.5 (<5.0-8.0) Urine Specific [place] 1.020 (1.000-1.030) Urine Protein >=300 mg/dL (NEG-TRACE) Urine Glucose (UA) Negative mg/dL (NEG) Urine Ketones (Stick) Negative mg/dL (NEG) Urine Blood Small (NEG) Urine Nitrite Negative (NEG) Urine Bilirubin Small (NEG) Urine Urobilinogen Dipstick 2.0 mg/dL (0.2 mg/dL) Urine Leukocyte Esterase Small (NEG) Urine RBC 0 /HPF (0-2) Urine WBC >40 /HPF (0-4) Urine Squamous Epithelial Cells Few /LPF Urine Transitional Epithelial Cells Many /LPF Urine Renal Epithelial Cells Occ /LPF Urine Bacteria 0 /HPF (0-FEW) Urine Hyaline Casts Many /HPF Urine Mucus Marked /LPF Assessment/Plan Assessment/Plan Acute hypoxic respiratory failure secondary to suspected aspiration pneumonia versus CAP, history of A. fib anxiety bipolar CAD depression GERD hypertension hyperlipidemia hypothyroid -[facility] from [facility] for worsening respiratory failure. Based upon report seems patient has been on decline for a few months -Required intubation in the emergency room. Concern for aspiration pneumonia there -Wide range of antibiotic allergies. Cefepime Flagyl received in ED will continue this for now; will also add on doxycycline -We will try to obtain more history from family in the morning -We will continue home meds as indicated -Pulmonary consult for vent management -DVT prophylaxis -N.p.o. Justifications for Admission Other Justification HEATHER TAN MD Jan 19, 2022 19:04
[2022-01-19] MEDS ORDERED: TRAM50TA PO (19:05)
[2022-01-19] MEDS ORDERED: MENT3.5O TP (19:05)
[2022-01-19] MEDS ORDERED: LIDO700A21 TP (19:05)
[2022-01-19] MEDS ORDERED: PRAV20TA2 PO (19:05)
[2022-01-19] MEDS ORDERED: APIX5TAB PO (19:05)
[2022-01-19] MEDS ORDERED: ROPI1TAB4 PO (19:05)
[2022-01-19] MEDS ORDERED: CARV25TA2 PO (19:05)
[2022-01-19] MEDS ORDERED: ONDA-84 PO (19:05)
[2022-01-19] MEDS ORDERED: ROPI4TAB10 PO (19:05)
[2022-01-19] MEDS ORDERED: DRON400T6 PO (19:05)
[2022-01-19] MEDS ORDERED: LAMO150T4 PO (19:05)
[2022-01-19] MEDS ORDERED: SENN-37 PO (19:05)
[2022-01-19] MEDS ORDERED: ACET325T21 PO (19:05)
[2022-01-19] MEDS ORDERED: FLUT9.9S NS (19:05)
[2022-01-19] MEDS ORDERED: SIME80TA14 PO (19:05)
[2022-01-19] MEDS ORDERED: ESTR42.53 VG (19:05)
[2022-01-19] MEDS ORDERED: LISI20TA18 PO (19:05)
[2022-01-19] MEDS ORDERED: CARB15DR65 EACHEYE (19:05)
[2022-01-19] MEDS ORDERED: MELA3TAB4 PO (19:05)
[2022-01-19] MEDS ORDERED: TIZA2CAP PO (19:05)
[2022-01-19] MEDS ORDERED: FAMO-63 PO (19:05)
[2022-01-19] MEDS ORDERED: MIRT-8 PO (19:05)
[2022-01-19] MEDS ORDERED: POLY2500 PO (19:05)
[2022-01-19] MEDS ORDERED: RISP0.5T24 PO ×2 (19:05)
[2022-01-19] MEDS ORDERED: PIP/TAZO PER PHARMACY MC PRN (19:15)
[2022-01-19] MEDS ORDERED: ACETAMINOPHEN 325 MG TABLET. PO PRN (19:15)
[2022-01-19] MEDS ORDERED: 0.9 % SODIUM CHLORIDE 10 ML DISP.SYRIN. IV PRN (19:15)
[2022-01-19] MEDS ORDERED: ONDANSETRON PF 4 MG/2 ML VIAL. IVP PRN (19:15)
[2022-01-19] MEDS ORDERED: MIDAZOLAM HCL/PF 2 MG/2 ML VIAL. IV PRN (20:00)
[2022-01-19] MEDS: SENNOSIDES/DOCUSATE 8.6/50MG TABLET. PO SCH (21:00)
[2022-01-19] MEDS: DOXYCYCLINE HYCLATE 100 MG in IV DEXTROSE 5% 100ML 100 ML IV SCH (21:12)
[2022-01-19] MEDS: FAMOTIDINE 20 MG/2 ML VIAL IVP SCH (21:13)
[2022-01-19] MEDS: cefTRIAXone IV Push 1 GM VIAL. IVP SCH (21:13)
[2022-01-19] MEDS: HEPARIN for SUB-Q USE 5,000 UNIT/ML VIAL. SQ SCH (21:14)
[2022-01-20] VITALS (33 sets, daily range): BP systolic 98–173; BP diastolic 41–70
[2022-01-20] MEDS: NOREPINEPHRINE VIAL 8 MG in IV DEXTROSE 5% 250 ML IV PRN ×2 (01:23→13:31)
--- NOTE | 2022-01-20 02:33 | EKG ---
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
[2022-01-20 05:12] LABS: CALCIUM 7.8 mg/dL (8.5-10.1); CREATININE 1.2 mg/dL (0.6-1.0); GFR 43.6; POTASSIUM 3.6 mmol/L (3.5-5.1)
[2022-01-20] MEDS: HEPARIN for SUB-Q USE 5,000 UNIT/ML VIAL. SQ SCH (06:12)
[2022-01-20] MEDS: CARVEDILOL 12.5 MG TABLET. PO SCH ×2 (08:30→17:00)
[2022-01-20 08:47] LABS: BASE EXCESS ABG -2 mmol/L (-3-3); HCO3 ABG 22 mmol/L (21-28); PCO2 ABG 36 mmHg (35-46); PO2 ABG 170 mmHg (65-108); SAT O2 ABG 99 % (92-99)
[2022-01-20 08:54] LABS: FIO2 ABG 100
[2022-01-20] MEDS: DRONEDARONE HCL 400 MG TABLET PO SCH ×2 (09:00→21:10)
[2022-01-20] MEDS: SENNOSIDES/DOCUSATE 8.6/50MG TABLET. PO SCH ×2 (09:00→21:11)
[2022-01-20] MEDS ORDERED: risperiDONE 1 MG TABLET. PO SCH (09:00)
[2022-01-20] MEDS: ELECTROLYTE (ICU) PROTOCOL. MC SCH (09:00)
[2022-01-20] MEDS: LISINOPRIL 20 MG TABLET PO SCH ×2 (09:00→21:10)
[2022-01-20] MEDS: DOXYCYCLINE HYCLATE 100 MG in IV DEXTROSE 5% 100ML 100 ML IV SCH ×2 (09:10→21:12)
[2022-01-20] MEDS: lamoTRIgine 100 MG TABLET. PO SCH (09:10)
[2022-01-20] MEDS: APIXABAN 5 MG TABLET. PO SCH ×2 (09:10→21:11)
[2022-01-20] MEDS: risperiDONE 1 MG TABLET. PO SCH ×3 (09:11→21:11)
--- NOTE | 2022-01-20 10:41 | CONS ---
DATE OF CONSULTATION: 01/20/2022 PULMONARY CONSULTATION ATTENDING PHYSICIAN: Mak Holden MD REASON FOR CONSULTATION: Respiratory failure. HISTORY OF PRESENT ILLNESS: The patient is a 76-year-old female who was [facility] for respiratory failure. The patient was unresponsive. She also developed increased respiratory distress. She was seen in the Emergency Room. She was intubated. They found some orange juice in her endotracheal tube. The patient's medications were reviewed from the [facility] facility. She is on Eliquis. In addition, she was also taking tramadol, mirtazapine, lamotrigine, Risperdal and lidocaine patch for pain. The patient's arterial blood gases were reviewed on admission and they showed a pH of 7.22, pCO2 of 60 and a pO2 of 84 with a bicarbonate of 24. This was obtained on 100% FiO2. Her latest ABGs showed a pH of 7.40, pCO2 of 36 and a pO2 of 170. This is on 100% FiO2. When I saw the patient, her saturations were 87-88 while on 40% FiO2. I have increased FiO2 to 60%. She is receiving low dose Levophed. She opens her eyes, but does not track much. PAST MEDICAL HISTORY: Significant for history of atrial fibrillation, on chronic anticoagulation, history of anemia, anxiety, arthritis, bipolar, CAD, constipation, depression, diverticulitis. PAST SURGICAL HISTORY: Appendectomy, and many others as reported in [facility]. SOCIAL HISTORY: Nonsmoker. ALLERGIES: All reviewed as listed in the MRAD. MEDICATIONS: All reviewed as listed in the MRAD including antibiotics. REVIEW OF SYSTEMS: Unable to obtain as she is on the ventilator. PHYSICAL EXAMINATION: VITAL SIGNS: Reviewed. Blood pressure 131 systolic on Levophed low dose. She has a T-max of 99.9. Blood pressure 113/48. She is currently on low dose Levophed. NECK: Supple. LUNGS: With diminished breath sounds anteriorly. CARDIOVASCULAR: With a regular rate. ABDOMEN: Soft, nontender. EXTREMITIES: With no pitting edema. LABORATORY DATA: Labs are reviewed. ABGs are discussed in my history of present illness. BUN and creatinine was 59 and 1.9, now down to 50 and 1.2. Albumin 3.0. INR 1.4. White cell count 8.6, hemoglobin 12.2 and platelets are 274. IMAGING DATA: Chest x-ray reviewed. Endotracheal tube in satisfactory position. There is a right upper lobe and right perihilar infiltrate. There is fullness on the right hilum. IMPRESSION: 1. Acute hypercapnic and hypoxic respiratory failure secondary to the sedative effect of multiple medications. In addition, she likely had aspirated. 2. Abnormal chest x-ray with infiltrates in the right upper and right perihilar area and some right hilar fullness. Likely aspiration. Cannot exclude mass in the right hilar area. We will consider CAT scan once she is more stable. 3. Acute kidney injury/hypovolemic shock. 4. No significant tobacco history. RECOMMENDATIONS: 1. Discussed with RN and RT. We will continue present assist control mode. I have increased FiO2 to 60%. We will avoid any further sedation. Use Precedex if needed. 2. Continue with present antibiotics. 3. IV hydration to see an improvement in her BUN and creatinine. 4. Wean Levophed off once blood pressure stays above systolic 90. 5. We will have to reassess her home medications to avoid any further sedative effects in future. 6. Stress ulcer prophylaxis. 7. DVT prophylaxis with subcutaneous heparin. 8. Discussed with RN and we will follow along with you. Chart reviewed, imaging studies reviewed. Total critical care time [address]: PATTI/neema TID: [id number]
--- NOTE | 2022-01-20 14:17 | NUR ---
SS following for discharge planning. SS reviewed pt chart and discussed with pt RN. Pt is currently on the vent at 60%. Pt is assisted living resident from [facility], ; fax [phone]. Pt on Levophed and IV Fluids. Pt on IV Doxycycline and IV Rocephin. Pulmonology following. SS will continue to follow for discharge planning.
[2022-01-20] MEDS: POLYVINYL ALCOHOL 1.4% OPHTH SOLUTION 15ML BOTTLE. OU SCH (14:55)
[2022-01-20] MEDS ORDERED: ATROPINE 0.5 MG/5 ML DISP.SYRINGE. IV PRN (16:30)
[2022-01-20] MEDS ORDERED: IV NORMAL SALINE 500ML BAG 500 ML IV PRN (16:30)
[2022-01-20] MEDS: DEXMEDETOMIDINE 400 MCG in IV NORMAL SALINE 100ML 96 ML IV PRN (18:46)
--- NOTE | 2022-01-20 19:11 | NUR ---
Spoke with Dr. Wang earlier because pt was restless. He gave order for Precedex and to refrain from using other sedatives if possible. Precedex started per order and pt tolerating well. Levophed gtt has been able to titrate off today and pt is also tolerating well..
--- NOTE | 2022-01-20 19:39 | PDOC ---
[employer] PROGRESS NOTE Date of Service DOS: DATE: 01/20/22 TIME: 19:37 Chief Complaint Chief Complaint Acute hypoxic respiratory failure secondary to suspected aspiration pneumonia versus CAP, history of A. fib anxiety bipolar CAD depression GERD hypertension hyperlipidemia hypothyroid -[facility] for worsening respiratory failure. Based upon report seems patient has been on decline for a few months -Required intubation in the emergency room. Concern for aspiration pneumonia there -Wide range of antibiotic allergies. Cefepime Flagyl received in ED will continue this for now; will also add on doxycycline -We will continue home meds as indicated, avoid overly sedative medications -Pulmonary consult for vent management -DVT prophylaxis -N.p.o. History of Present Illness History of Present Illness 01/20 Patient evaluated examined at bedside. Notably more alert from yesterday today but still intubated. She has had a lot of secretions out of her ET tube. Continue present antibiotics. Remains on Levophed. Try to wean off as tolerated. Pulmonary consulted and evaluated. Continue intubation for now. Discussed with pulmonary physician. Discussed with bedside RN. 35min CC time Vitals/I&O Vitals/I&O: Vital Signs Date Time Temp Pulse Resp B/P (MAP) Pulse Ox O2 Delivery O2 Flow Rate FiO2 01/20/22 18:05 97 Ventilator 01/20/22 18:00 56 20 111/46 01/20/22 04:00 99.9 99.9 01/19/22 14:10 15.0 I & O 01/19/22 01/19/22 01/20/22 15:00 23:00 07:00 Intake Total 1000 ml 2100 ml 449.3 ml Output Total 180 ml 450 ml Balance 1000 ml 1920 ml -0.7 ml Physical Exam General: Alert, Cooperative Heart: Regular rate Lungs: Other (decreased throughout) Abdomen: Normal bowel sounds, Soft, No tenderness Extremities: No edema, Normal pulses Skin: No significant lesion Labs Labs: Laboratory Tests Test 01/20/22 03:40 01/20/22 08:40 Sodium Level 141 mmol/L (136-145) Potassium Level 3.6 mmol/L (3.5-5.1) Chloride Level 108 mmol/L (98-107) Carbon Dioxide Level 24 mmol/L (21-32) Anion Gap 9 (6-14) Blood Urea Nitrogen 50 mg/dL (7-20) Creatinine 1.2 mg/dL (0.6-1.0) Estimated GFR (Cockcroft-Gault) 43.6 Glucose Level 118 mg/dL (70-99) Calcium Level 7.8 mg/dL (8.5-10.1) O2 Saturation 99 % (92-99) Arterial Blood pH 7.40 (7.35-7.45) Arterial Blood pCO2 at Patient Temp 36 mmHg (35-46) Arterial Blood pO2 at Patient Temp 170 mmHg (65-108) Arterial Blood HCO3 22 mmol/L (21-28) Arterial Blood Base Excess -2 mmol/L (-3-3) FiO2 100 Assessment and Plan Assessmemt and Plan Problems Medical Problems: (1) Acute respiratory failure Status: Acute (2) Aspiration pneumonia Status: Acute (3) Hypotension Status: Acute Comment Review of Relevant I have reviewed the following items lexis (where applicable) has been applied. Medications: Current Medications Medications (Trade) Dose Ordered Sig/Eva Route PRN Reason Start Time Stop Time Status Last Admin Dose Admin Doxycycline Hyclate 100 mg/ Dextrose 100 ml @ 50 mls/hr Q12HR IV 01/19/22 21:00 01/20/22 09:10 Famotidine (Pepcid Vial) 20 mg QHS IVP 01/19/22 21:00 01/19/22 21:13 Heparin Sodium (Porcine) (Heparin Sodium) 5,000 unit Q8HRS SQ 01/19/22 22:00 01/20/22 08:21 DC 01/20/22 06:12 Ceftriaxone Sodium (Rocephin) 1 gm Q24H IVP 01/19/22 21:00 01/19/22 21:13 Apixaban (Eliquis) 5 mg BID PO 01/20/22 09:00 01/20/22 09:10 Glycerin/ Hypromellose/ Polyethylene (Artificial Tears) 1 drop DAILY OU 01/20/22 09:00 01/20/22 14:55 Lamotrigine (LaMICtal) 150 mg DAILY PO 01/20/22 09:00 01/20/22 09:10 Risperidone (RisperDAL) 0.5 mg TID PO 01/20/22 09:00 01/20/22 14:24 Dexmedetomidine HCl 400 mcg/ Sodium Chloride 100 ml @ 2.215 mls/ hr CONT PRN IV PER PROTOCOL 01/20/22 16:30 01/20/22 18:46 Justifications for Admission Other Justification HEATHER TAN MD Jan 20, 2022 19:39
[2022-01-20] MEDS ORDERED: RISPERIDONE 0.5 MG PO SCH (21:00)
[2022-01-20] MEDS: cefTRIAXone IV Push 1 GM VIAL. IVP SCH (21:07)
[2022-01-20] MEDS: FAMOTIDINE 20 MG/2 ML VIAL IVP SCH (21:07)
[2022-01-20] MEDS: MIRTAZAPINE 15 MG TABLET PO SCH (21:10)
[2022-01-20] MEDS: ATORVASTATIN CALCIUM 10 MG TABLET. PO SCH (21:11)
[2022-01-21] VITALS (24 sets, daily range): BP systolic 79–153; BP diastolic 38–68
--- NOTE | 2022-01-21 04:55 | RAD ---
AP chest x-ray HISTORY: Tube placement. COMPARISON: Chest x-ray January 19, 2022 FINDINGS: Surgical changes cervical spine. Bilateral shoulder arthroplasty. Endotracheal tube tip 2 c m above the luis antonio. Nasogastric tube extends to the abdomen outside the field of view likely extends to the gastric antrum or into the duodenum based on its right upper quadrant position. Heart size sta ble. No pneumothorax. Small pleural effusions along the diaphragms have developed. Right upper lobe o pacity persists with decreased consolidation at the perihilar upper lobe. The rightward midline shift has resolved likely due to improved aeration of the right upper lobe. Right lower lobe basilar atele ctasis stable. There is new left lower lobe retrocardiac consolidation obscuring the diaphragm. IMPRESSION: Lines and tubes as described above. Pulmonary opacities as described above. Electronically signed by: Carroll Keen MD (01/21/2022 4:53 AM) [facility]
[2022-01-21] MEDS: DEXMEDETOMIDINE 400 MCG in IV NORMAL SALINE 100ML 96 ML IV PRN (05:25)
[2022-01-21] MEDS: CARVEDILOL 12.5 MG TABLET. PO SCH ×3 (08:00→17:00)
[2022-01-21 08:28] LABS: BASO % 0 % (0-3); EOS % 0 % (0-3); HEMATOCRIT 26.2 % (36.0-47.0); HEMOGLOBIN 8.7 g/dL (12.0-15.5); LYMPH # 0.8 x10^3/uL (1.0-4.8); LYMPH % 8 % (24-48); MEAN CORPUSCULAR HEMOGLOBIN 33 pg (25-35); MEAN CORPUSCULAR HGB CONC 33 g/dL (31-37); MEAN CORPUSCULAR VOLUME 100 fL (79-100); MONO # 0.5 x10^3/uL (0.0-1.1); MONO % 5 % (0-9); NEUT # 8.5 x10^3/uL (1.8-7.7); NEUT % 86 % (31-73); PLATELET COUNT 177 x10^3/uL (140-400); RED BLOOD COUNT 2.62 x10^6/uL (3.50-5.40); RED CELL DISTRIBUTION WIDTH 14.1 % (11.5-14.5); WHITE BLOOD COUNT 9.8 x10^3/uL (4.0-11.0)
[2022-01-21 08:51] LABS: CALCIUM 8.3 mg/dL (8.5-10.1); CREATININE 0.8 mg/dL (0.6-1.0); GFR 69.6; POTASSIUM 3.2 mmol/L (3.5-5.1)
[2022-01-21] MEDS: risperiDONE 1 MG TABLET. PO SCH ×3 (08:52→21:00)
[2022-01-21] MEDS: SENNOSIDES/DOCUSATE 8.6/50MG TABLET. PO SCH ×2 (08:52→21:00)
[2022-01-21] MEDS: DRONEDARONE HCL 400 MG TABLET PO SCH ×2 (08:54→21:00)
[2022-01-21] MEDS: APIXABAN 5 MG TABLET. PO SCH ×2 (08:54→21:00)
[2022-01-21] MEDS: lamoTRIgine 100 MG TABLET. PO SCH (08:54)
[2022-01-21] MEDS: DOXYCYCLINE HYCLATE 100 MG in IV DEXTROSE 5% 100ML 100 ML IV SCH ×2 (08:55→21:15)
[2022-01-21 08:56] LABS: BASE EXCESS ABG -5 mmol/L (-3-3); HCO3 ABG 20 mmol/L (21-28); PCO2 ABG 35 mmHg (35-46); PO2 ABG 69 mmHg (65-108); SAT O2 ABG 93 % (92-99)
[2022-01-21 08:58] LABS: FIO2 ABG 40
[2022-01-21] MEDS: ELECTROLYTE (ICU) PROTOCOL. MC SCH (09:00)
[2022-01-21] MEDS: POLYVINYL ALCOHOL 1.4% OPHTH SOLUTION 15ML BOTTLE. OU SCH (09:00)
[2022-01-21] MEDS: LISINOPRIL 20 MG TABLET PO SCH ×2 (09:00→21:00)
--- NOTE | 2022-01-21 10:02 | PDOC ---
PULMONARY PROGRESS NOTES DATE: 01/21/22 TIME: 10:00 Subjective Patient remains on assist control mode. She required significant suctioning earlier this morning and mucus secretions were removed. She is awake and following commands. Currently on Precedex drip Vitals Vital Signs Date Time Temp Pulse Resp B/P (MAP) Pulse Ox O2 Delivery O2 Flow Rate FiO2 01/21/22 09:40 95 Ventilator 01/21/22 09:17 68 20 112/48 01/21/22 07:00 99.1 99.1 General: Alert, No acute distress Lungs: Other (decreased throughout) Cardiovascular: S1, S2 Abdomen: Soft Extremities: No Edema Labs Laboratory Tests Test 01/19/22 14:05 01/19/22 14:45 01/19/22 17:05 01/19/22 17:23 White Blood Count 8.6 x10^3/uL (4.0-11.0) Red Blood Count 3.71 x10^6/uL (3.50-5.40) Hemoglobin 12.2 g/dL (12.0-15.5) Hematocrit 37.7 % (36.0-47.0) Mean Corpuscular Volume 102 fL (79-100) Mean Corpuscular Hemoglobin 33 pg (25-35) Mean Corpuscular Hemoglobin Concent 32 g/dL (31-37) Red Cell Distribution Width 14.2 % (11.5-14.5) Platelet Count 274 x10^3/uL (140-400) Neutrophils (%) (Auto) 83 % (31-73) Lymphocytes (%) (Auto) 14 % (24-48) Monocytes (%) (Auto) 3 % (0-9) Eosinophils (%) (Auto) 0 % (0-3) Basophils (%) (Auto) 0 % (0-3) Neutrophils # (Auto) 7.1 x10^3/uL (1.8-7.7) Lymphocytes # (Auto) 1.2 x10^3/uL (1.0-4.8) Monocytes # (Auto) 0.2 x10^3/uL (0.0-1.1) Eosinophils # (Auto) 0.0 x10^3/uL (0.0-0.7) Basophils # (Auto) 0.0 x10^3/uL (0.0-0.2) Prothrombin Time 17.3 SEC (11.7-14.0) Prothromb Time International Ratio 1.4 (0.8-1.1) Activated Partial Thromboplast Time 35 SEC (24-38) Sodium Level 142 mmol/L (136-145) Potassium Level 4.5 mmol/L (3.5-5.1) Chloride Level 100 mmol/L (98-107) Carbon Dioxide Level 34 mmol/L (21-32) Anion Gap 8 (6-14) Blood Urea Nitrogen 59 mg/dL (7-20) Creatinine 1.9 mg/dL (0.6-1.0) Estimated GFR (Cockcroft-Gault) 25.6 BUN/Creatinine Ratio 31 (6-20) Glucose Level 141 mg/dL (70-99) Lactic Acid Level 1.8 mmol/L (0.4-2.0) Calcium Level 8.7 mg/dL (8.5-10.1) Magnesium Level 2.6 mg/dL (1.8-2.4) Total Bilirubin 0.8 mg/dL (0.2-1.0) Aspartate Amino Transf (AST/SGOT) 39 U/L (15-37) Alanine Aminotransferase (ALT/SGPT) 33 U/L (14-59) Alkaline Phosphatase 114 U/L (46-116) Troponin I High Sensitivity 24 ng/L (4-50) OH-Vvq-C-Type Natriuretic Peptide 451 pg/mL (0-449) Total Protein 6.2 g/dL (6.4-8.2) Albumin 3.0 g/dL (3.4-5.0) Albumin/Globulin Ratio 0.9 (1.0-1.7) O2 Saturation 93 % (92-99) 91 % (92-99) Arterial Blood pH 7.22 (7.35-7.45) 7.29 (7.35-7.45) Arterial Blood pCO2 at Patient Temp 60 mmHg (35-46) 48 mmHg (35-46) Arterial Blood pO2 at Patient Temp 84 mmHg (65-108) 71 mmHg (65-108) Arterial Blood HCO3 24 mmol/L (21-28) 22 mmol/L (21-28) Arterial Blood Base Excess -4 mmol/L (-3-3) -4 mmol/L (-3-3) FiO2 100% vent 100% vent Urine Collection Type Unknown Urine Color Yellow Urine Clarity Hazy Urine pH 5.5 (<5.0-8.0) Urine Specific [place] 1.020 (1.000-1.030) Urine Protein >=300 mg/dL (NEG-TRACE) Urine Glucose (UA) Negative mg/dL (NEG) Urine Ketones (Stick) Negative mg/dL (NEG) Urine Blood Small (NEG) Urine Nitrite Negative (NEG) Urine Bilirubin Small (NEG) Urine Urobilinogen Dipstick 2.0 mg/dL (0.2 mg/dL) Urine Leukocyte Esterase Small (NEG) Urine RBC 0 /HPF (0-2) Urine WBC >40 /HPF (0-4) Urine Squamous Epithelial Cells Few /LPF Urine Transitional Epithelial Cells Many /LPF Urine Renal Epithelial Cells Occ /LPF Urine Bacteria 0 /HPF (0-FEW) Urine Hyaline Casts Many /HPF Urine Mucus Marked /LPF Test 01/20/22 03:40 01/20/22 08:40 01/21/22 08:00 01/21/22 08:15 Sodium Level 141 mmol/L (136-145) 146 mmol/L (136-145) Potassium Level 3.6 mmol/L (3.5-5.1) 3.2 mmol/L (3.5-5.1) Chloride Level 108 mmol/L (98-107) 111 mmol/L (98-107) Carbon Dioxide Level 24 mmol/L (21-32) 23 mmol/L (21-32) Anion Gap 9 (6-14) 12 (6-14) Blood Urea Nitrogen 50 mg/dL (7-20) 26 mg/dL (7-20) Creatinine 1.2 mg/dL (0.6-1.0) 0.8 mg/dL (0.6-1.0) Estimated GFR (Cockcroft-Gault) 43.6 69.6 Glucose Level 118 mg/dL (70-99) 76 mg/dL (70-99) Calcium Level 7.8 mg/dL (8.5-10.1) 8.3 mg/dL (8.5-10.1) O2 Saturation 99 % (92-99) 93 % (92-99) Arterial Blood pH 7.40 (7.35-7.45) 7.38 (7.35-7.45) Arterial Blood pCO2 at Patient Temp 36 mmHg (35-46) 35 mmHg (35-46) Arterial Blood pO2 at Patient Temp 170 mmHg (65-108) 69 mmHg (65-108) Arterial Blood HCO3 22 mmol/L (21-28) 20 mmol/L (21-28) Arterial Blood Base Excess -2 mmol/L (-3-3) -5 mmol/L (-3-3) FiO2 100 40 White Blood Count 9.8 x10^3/uL (4.0-11.0) Red Blood Count 2.62 x10^6/uL (3.50-5.40) Hemoglobin 8.7 g/dL (12.0-15.5) Hematocrit 26.2 % (36.0-47.0) Mean Corpuscular Volume 100 fL (79-100) Mean Corpuscular Hemoglobin 33 pg (25-35) Mean Corpuscular Hemoglobin Concent 33 g/dL (31-37) Red Cell Distribution Width 14.1 % (11.5-14.5) Platelet Count 177 x10^3/uL (140-400) Neutrophils (%) (Auto) 86 % (31-73) Lymphocytes (%) (Auto) 8 % (24-48) Monocytes (%) (Auto) 5 % (0-9) Eosinophils (%) (Auto) 0 % (0-3) Basophils (%) (Auto) 0 % (0-3) Neutrophils # (Auto) 8.5 x10^3/uL (1.8-7.7) Lymphocytes # (Auto) 0.8 x10^3/uL (1.0-4.8) Monocytes # (Auto) 0.5 x10^3/uL (0.0-1.1) Eosinophils # (Auto) 0.0 x10^3/uL (0.0-0.7) Basophils # (Auto) 0.0 x10^3/uL (0.0-0.2) Laboratory Tests Test 01/21/22 08:00 01/21/22 08:15 O2 Saturation 93 % (92-99) Arterial Blood pH 7.38 (7.35-7.45) Arterial Blood pCO2 at Patient Temp 35 mmHg (35-46) Arterial Blood pO2 at Patient Temp 69 mmHg (65-108) Arterial Blood HCO3 20 mmol/L (21-28) Arterial Blood Base Excess -5 mmol/L (-3-3) FiO2 40 White Blood Count 9.8 x10^3/uL (4.0-11.0) Red Blood Count 2.62 x10^6/uL (3.50-5.40) Hemoglobin 8.7 g/dL (12.0-15.5) Hematocrit 26.2 % (36.0-47.0) Mean Corpuscular Volume 100 fL (79-100) Mean Corpuscular Hemoglobin 33 pg (25-35) Mean Corpuscular Hemoglobin Concent 33 g/dL (31-37) Red Cell Distribution Width 14.1 % (11.5-14.5) Platelet Count 177 x10^3/uL (140-400) Neutrophils (%) (Auto) 86 % (31-73) Lymphocytes (%) (Auto) 8 % (24-48) Monocytes (%) (Auto) 5 % (0-9) Eosinophils (%) (Auto) 0 % (0-3) Basophils (%) (Auto) 0 % (0-3) Neutrophils # (Auto) 8.5 x10^3/uL (1.8-7.7) Lymphocytes # (Auto) 0.8 x10^3/uL (1.0-4.8) Monocytes # (Auto) 0.5 x10^3/uL (0.0-1.1) Eosinophils # (Auto) 0.0 x10^3/uL (0.0-0.7) Basophils # (Auto) 0.0 x10^3/uL (0.0-0.2) Sodium Level 146 mmol/L (136-145) Potassium Level 3.2 mmol/L (3.5-5.1) Chloride Level 111 mmol/L (98-107) Carbon Dioxide Level 23 mmol/L (21-32) Anion Gap 12 (6-14) Blood Urea Nitrogen 26 mg/dL (7-20) Creatinine 0.8 mg/dL (0.6-1.0) Estimated GFR (Cockcroft-Gault) 69.6 Glucose Level 76 mg/dL (70-99) Calcium Level 8.3 mg/dL (8.5-10.1) Medications Active Scripts Medications Dose Route/Sig Max Daily Dose Days Date Category Dose Instructions Tramadol Hcl 50 Mg Tablet 50 Mg PO Q6HRS PRN 01/19/22 Reported Tizanidine Hcl 2 Mg Capsule 2 Mg PO TID PRN 01/19/22 Reported Simethicone 80 Mg Tab.chew 2 Tab PO TID 1 01/19/22 Reported Senokot-S Tablet (Sennosides/Docusate Sodium) 1 Each Tablet 2 Tab PO BID 30 01/19/22 Reported Ropinirole Hcl 4 Mg Tablet 4 Mg PO QHS 01/19/22 Reported Ropinirole Hcl 1 Mg Tablet 1 Mg PO DAILY 01/19/22 Reported Risperdal (Risperidone) 0.5 Mg Tablet 0.5 Mg PO QHS 01/19/22 Reported Risperdal (Risperidone) 0.5 Mg Tablet 0.5 Mg PO BID 01/19/22 Reported Pravastatin Sodium 20 Mg Tablet 1 Tab PO QHS 01/19/22 Reported Polyethylene Glycol 3350 2,500 Gm Powder 17 Gm PO BID 01/19/22 Reported Ondansetron Hcl 4 Mg Tablet 1 Tab PO PRN Q8HRS PRN 01/19/22 Reported Mirtazapine 30 Mg Tablet 1 Tab PO QHS 01/19/22 Reported Melatonin 3 Mg Tablet 2 Tab PO QHS 01/19/22 Reported Lisinopril 20 Mg Tablet 1 Tab PO BID 01/19/22 Reported Lidocaine PATCH (Lidocaine) 1 Each Adh..patch 2 Each TP PRN BID PRN 01/19/22 Reported REMOVE AFTER 12 HOURS Lamotrigine 150 Mg Tablet 1 Tab PO DAILY 01/19/22 Reported Flonase Allergy Relief (Fluticasone Propionate) 9.9 Ml [place].susp 2 Sprays NS DAILY 01/19/22 Reported Pepcid (Famotidine) 20 Mg Tablet 20 Mg PO HS 01/19/22 Reported Estrace (Estradiol) 42.5 Gm Cream.appl 1 Gm VG QMTHSA 01/19/22 Reported Eliquis (Apixaban) 5 Mg Tablet 5 Mg PO BID 01/19/22 Reported Multaq (Dronedarone Hcl) 400 Mg Tablet 1 Tab PO BID 01/19/22 Reported Carvedilol 25 Mg Tablet 12.5 Mg PO BIDWMEALS 01/19/22 Reported Thera Tears (Carboxymethylcellulose Sodium) 15 Ml Drops 1 Drop EACHEYE DAILY 01/19/22 Reported Calmoseptine Ointment (Menthol/Zinc Oxide) 3.5 Gm Oint.pack 3.5 Gm TP BID 01/19/22 Reported Acetaminophen 325 Mg Tablet 2 Tab PO PRN Q6HRS PRN 30 01/19/22 Reported Comments Chest x-ray reviewed 01/21/2022. Right upper lobe infiltrate and right hilar prominence. Impression . 1. Acute hypercapnic and hypoxic respiratory failure secondary to the sedative effect of multiple medications. In addition, she likely had aspirated. 2. Abnormal chest x-ray with infiltrates in the right upper and right perihilar area and some right hilar fullness. Likely aspiration. Cannot exclude mass in the right hilar area. We will consider CAT scan once she is more stable. 3. Acute kidney injury/hypovolemic shock. 4. No significant tobacco history. Plan . RECOMMENDATIONS: 1. Discussed with RN. Oxygen requirement has improved. She does have a weak cough. At this time I would try CPAP and consider for extubation if she tolerates well. 2. Continue with present antibiotics. 3. Status post IV hydration with improvement in her BUN and creatinine. 4. Levophed off 5. We will have to reassess her home medications to avoid any further sedative effects in future. 6. Stress ulcer prophylaxis. 7. DVT prophylaxis with subcutaneous heparin. 8. We will consider CT chest once extubated. 9. We will reach out to patient's family to discuss goals of care and consideration of DNR. Addendum; I have spoken to patient's brother. Explained patient's clinical condition. I have also discussed advanced directives with him. At this time he wants to keep her full code. He does agree that once patient is extubated, we will ask patient's advanced directives and what ever she says will respect her wishes. Critical care time 30 minutes ALEXIA MO MD Jan 21, 2022 10:02
[2022-01-21] MEDS: POTASSIUM CHLORIDE 20MEQ 100 ML IV SCH ×2 (10:10→11:10)
--- NOTE | 2022-01-21 10:11 | PDOC ---
[employer] PROGRESS NOTE Date of Service DOS: DATE: 01/21/22 TIME: 10:10 Chief Complaint Chief Complaint Acute hypoxic respiratory failure secondary to suspected aspiration pneumonia versus CAP, history of A. fib anxiety bipolar CAD depression GERD hypertension hyperlipidemia hypothyroid -[facility] for worsening respiratory failure. Based upon report seems patient has been on decline for a few months -Required intubation in the emergency room. Concern for aspiration pneumonia there -Wide range of antibiotic allergies. Cefepime Flagyl received in ED will continue this for now; will also add on doxycycline -We will continue home meds as indicated, avoid overly sedative medications -Pulmonary consult for vent management -DVT prophylaxis -N.p.o. History of Present Illness History of Present Illness 01/21 Patient evaluated examined at bedside. She remains intubated. Able to wean off Levophed overnight. Needs some Precedex however planning to wean that this morning. She was easily awoken and seemed to comprehend what I was telling her in regards to the plan. Pulmonary following. Possible extubation in next day or 2. Discussed with bedside RN. 33 minutes of critical care time. 01/20 Patient evaluated examined at bedside. Notably more alert from yesterday today but still intubated. She has had a lot of secretions out of her ET tube. Continue present antibiotics. Remains on Levophed. Try to wean off as tolerated. Pulmonary consulted and evaluated. Continue intubation for now. Discussed with pulmonary physician. Discussed with bedside RN. 35min CC time Vitals/I&O Vitals/I&O: Vital Signs Date Time Temp Pulse Resp B/P (MAP) Pulse Ox O2 Delivery O2 Flow Rate FiO2 01/21/22 09:40 95 Ventilator 01/21/22 09:17 68 20 112/48 01/21/22 07:00 99.1 99.1 I & O 01/20/22 01/20/22 01/21/22 15:00 23:00 07:00 Intake Total 1861 ml 542 ml Output Total 650 ml 650 ml Balance 1211 ml -108 ml Physical Exam General: Alert, Cooperative Heart: Regular rate Lungs: Other (decreased throughout) Abdomen: Normal bowel sounds, Soft, No tenderness Extremities: No edema, Normal pulses Skin: No significant lesion Labs Labs: Laboratory Tests Test 01/21/22 08:00 01/21/22 08:15 O2 Saturation 93 % (92-99) Arterial Blood pH 7.38 (7.35-7.45) Arterial Blood pCO2 at Patient Temp 35 mmHg (35-46) Arterial Blood pO2 at Patient Temp 69 mmHg (65-108) Arterial Blood HCO3 20 mmol/L (21-28) Arterial Blood Base Excess -5 mmol/L (-3-3) FiO2 40 White Blood Count 9.8 x10^3/uL (4.0-11.0) Red Blood Count 2.62 x10^6/uL (3.50-5.40) Hemoglobin 8.7 g/dL (12.0-15.5) Hematocrit 26.2 % (36.0-47.0) Mean Corpuscular Volume 100 fL (79-100) Mean Corpuscular Hemoglobin 33 pg (25-35) Mean Corpuscular Hemoglobin Concent 33 g/dL (31-37) Red Cell Distribution Width 14.1 % (11.5-14.5) Platelet Count 177 x10^3/uL (140-400) Neutrophils (%) (Auto) 86 % (31-73) Lymphocytes (%) (Auto) 8 % (24-48) Monocytes (%) (Auto) 5 % (0-9) Eosinophils (%) (Auto) 0 % (0-3) Basophils (%) (Auto) 0 % (0-3) Neutrophils # (Auto) 8.5 x10^3/uL (1.8-7.7) Lymphocytes # (Auto) 0.8 x10^3/uL (1.0-4.8) Monocytes # (Auto) 0.5 x10^3/uL (0.0-1.1) Eosinophils # (Auto) 0.0 x10^3/uL (0.0-0.7) Basophils # (Auto) 0.0 x10^3/uL (0.0-0.2) Sodium Level 146 mmol/L (136-145) Potassium Level 3.2 mmol/L (3.5-5.1) Chloride Level 111 mmol/L (98-107) Carbon Dioxide Level 23 mmol/L (21-32) Anion Gap 12 (6-14) Blood Urea Nitrogen 26 mg/dL (7-20) Creatinine 0.8 mg/dL (0.6-1.0) Estimated GFR (Cockcroft-Gault) 69.6 Glucose Level 76 mg/dL (70-99) Calcium Level 8.3 mg/dL (8.5-10.1) Assessment and Plan Assessmemt and Plan Problems Medical Problems: (1) Acute respiratory failure Status: Acute (2) Aspiration pneumonia Status: Acute (3) Hypotension Status: Acute Comment Review of Relevant I have reviewed the following items lexis (where applicable) has been applied. Medications: Current Medications Medications (Trade) Dose Ordered Sig/Eva Route PRN Reason Start Time Stop Time Status Last Admin Dose Admin Mirtazapine (Remeron) 30 mg QHS PO 01/20/22 21:00 01/20/22 21:10 Atorvastatin Calcium (Lipitor) 5 mg QHS PO 01/20/22 21:00 01/20/22 21:11 Dexmedetomidine HCl 400 mcg/ Sodium Chloride 100 ml @ 2.215 mls/ hr CONT PRN IV PER PROTOCOL 01/20/22 16:30 01/21/22 05:25 Justifications for Admission Other Justification HEATHER TAN MD Jan 21, 2022 10:11
[2022-01-21 11:41] LABS: BASE EXCESS ABG -5 mmol/L (-3-3); HCO3 ABG 20 mmol/L (21-28); PCO2 ABG 38 mmHg (35-46); PO2 ABG 81 mmHg (65-108); SAT O2 ABG 95 % (92-99)
[2022-01-21 11:44] LABS: FIO2 ABG 40
[2022-01-21] MEDS ORDERED: SODIUM BICARB ADULT 8.4% 50 MEQ/50 ML DISP.SYRIN. ONE (11:53)
[2022-01-21] MEDS ORDERED: SODIUM BICARB ADULT 8.4% 50 MEQ/50 ML DISP.SYRIN. IV ONE (12:00)
--- NOTE | 2022-01-21 14:48 | NUR ---
Patient was extubated at 1200 and placed on venti mask 50% and then bipap. at 1315 patient refused bipap. This RN educated patient about DNR/DNI status change. Patient was able to answer all questions appropriately to this RN. CLAUDIA Carlton discussed with patient on code status and patient answered all questions appropriately to her also. This RN updated patient's brother and also updated Dr. Wang and code status change was ordered.
--- NOTE | 2022-01-21 15:34 | NUR ---
SS following up with discharge planning. SS reviewed pt chart and discussed with pt RN. SS was notified that pt was being skilled for short term rehabilitation at [facility], ; fax [phone]. Pt extubated today and is currently on Venti Mask at 15 liters and 50%. Pt on IV Rocephin and IV Doxycycline. DNR/DNI. Pulmonology following. SS will continue to follow for discharge planning.
[2022-01-21] MEDS: ATORVASTATIN CALCIUM 10 MG TABLET. PO SCH (21:00)
[2022-01-21] MEDS: MIRTAZAPINE 15 MG TABLET PO SCH (21:00)
[2022-01-21] MEDS: cefTRIAXone IV Push 1 GM VIAL. IVP SCH (21:15)
[2022-01-21] MEDS: FAMOTIDINE 20 MG/2 ML VIAL IVP SCH (21:15)
[2022-01-22] VITALS (17 sets, daily range): BP systolic 86–180; BP diastolic 38–87
[2022-01-22] MEDS ORDERED: MORPHINE SULFATE 2 MG/ML INJ. IVP PRN
[2022-01-22] MEDS: CARVEDILOL 12.5 MG TABLET. PO SCH ×2 (08:00→15:56)
[2022-01-22] MEDS: ELECTROLYTE (ICU) PROTOCOL. MC SCH (09:00)
[2022-01-22] MEDS: LISINOPRIL 20 MG TABLET PO SCH ×2 (09:00→21:00)
[2022-01-22] MEDS: APIXABAN 5 MG TABLET. PO SCH ×2 (09:00→21:00)
[2022-01-22] MEDS: DRONEDARONE HCL 400 MG TABLET PO SCH ×2 (09:00→21:00)
[2022-01-22] MEDS: SENNOSIDES/DOCUSATE 8.6/50MG TABLET. PO SCH ×2 (09:00→21:00)
[2022-01-22] MEDS: lamoTRIgine 100 MG TABLET. PO SCH (09:00)
[2022-01-22] MEDS: risperiDONE 1 MG TABLET. PO SCH ×3 (09:00→21:00)
[2022-01-22] MEDS: POLYVINYL ALCOHOL 1.4% OPHTH SOLUTION 15ML BOTTLE. OU SCH (09:00)
[2022-01-22] MEDS: DOXYCYCLINE HYCLATE 100 MG in IV DEXTROSE 5% 100ML 100 ML IV SCH ×2 (09:02→22:00)
--- NOTE | 2022-01-22 10:26 | PDOC ---
PULMONARY PROGRESS NOTES DATE: 01/22/22 TIME: 10:23 Subjective Patient was extubated yesterday. She did required BiPAP but then declined to wear the BiPAP. Her brother was notified and he agreed with patient's wishes and made her DNR. Currently on a Ventimask. Vitals Vital Signs Date Time Temp Pulse Resp B/P (MAP) Pulse Ox O2 Delivery O2 Flow Rate FiO2 01/22/22 06:00 66 24 104/42 95 Venturi Mask 15.0 01/22/22 04:00 97.8 97.8 General: No acute distress, Lethargic Lungs: Other (decreased throughout) Cardiovascular: S1, S2 Abdomen: Soft Extremities: No Edema Labs Laboratory Tests Test 01/21/22 08:00 01/21/22 08:15 01/21/22 11:38 O2 Saturation 93 % (92-99) 95 % (92-99) Arterial Blood pH 7.38 (7.35-7.45) 7.34 (7.35-7.45) Arterial Blood pCO2 at Patient Temp 35 mmHg (35-46) 38 mmHg (35-46) Arterial Blood pO2 at Patient Temp 69 mmHg (65-108) 81 mmHg (65-108) Arterial Blood HCO3 20 mmol/L (21-28) 20 mmol/L (21-28) Arterial Blood Base Excess -5 mmol/L (-3-3) -5 mmol/L (-3-3) FiO2 40 40 White Blood Count 9.8 x10^3/uL (4.0-11.0) Red Blood Count 2.62 x10^6/uL (3.50-5.40) Hemoglobin 8.7 g/dL (12.0-15.5) Hematocrit 26.2 % (36.0-47.0) Mean Corpuscular Volume 100 fL (79-100) Mean Corpuscular Hemoglobin 33 pg (25-35) Mean Corpuscular Hemoglobin Concent 33 g/dL (31-37) Red Cell Distribution Width 14.1 % (11.5-14.5) Platelet Count 177 x10^3/uL (140-400) Neutrophils (%) (Auto) 86 % (31-73) Lymphocytes (%) (Auto) 8 % (24-48) Monocytes (%) (Auto) 5 % (0-9) Eosinophils (%) (Auto) 0 % (0-3) Basophils (%) (Auto) 0 % (0-3) Neutrophils # (Auto) 8.5 x10^3/uL (1.8-7.7) Lymphocytes # (Auto) 0.8 x10^3/uL (1.0-4.8) Monocytes # (Auto) 0.5 x10^3/uL (0.0-1.1) Eosinophils # (Auto) 0.0 x10^3/uL (0.0-0.7) Basophils # (Auto) 0.0 x10^3/uL (0.0-0.2) Sodium Level 146 mmol/L (136-145) Potassium Level 3.2 mmol/L (3.5-5.1) Chloride Level 111 mmol/L (98-107) Carbon Dioxide Level 23 mmol/L (21-32) Anion Gap 12 (6-14) Blood Urea Nitrogen 26 mg/dL (7-20) Creatinine 0.8 mg/dL (0.6-1.0) Estimated GFR (Cockcroft-Gault) 69.6 Glucose Level 76 mg/dL (70-99) Calcium Level 8.3 mg/dL (8.5-10.1) Laboratory Tests Test 01/21/22 11:38 O2 Saturation 95 % (92-99) Arterial Blood pH 7.34 (7.35-7.45) Arterial Blood pCO2 at Patient Temp 38 mmHg (35-46) Arterial Blood pO2 at Patient Temp 81 mmHg (65-108) Arterial Blood HCO3 20 mmol/L (21-28) Arterial Blood Base Excess -5 mmol/L (-3-3) FiO2 40 Medications Active Scripts Medications Dose Route/Sig Max Daily Dose Days Date Category Dose Instructions Tramadol Hcl 50 Mg Tablet 50 Mg PO Q6HRS PRN 01/19/22 Reported Tizanidine Hcl 2 Mg Capsule 2 Mg PO TID PRN 01/19/22 Reported Simethicone 80 Mg Tab.chew 2 Tab PO TID 1 01/19/22 Reported Senokot-S Tablet (Sennosides/Docusate Sodium) 1 Each Tablet 2 Tab PO BID 30 01/19/22 Reported Ropinirole Hcl 4 Mg Tablet 4 Mg PO QHS 01/19/22 Reported Ropinirole Hcl 1 Mg Tablet 1 Mg PO DAILY 01/19/22 Reported Risperdal (Risperidone) 0.5 Mg Tablet 0.5 Mg PO QHS 01/19/22 Reported Risperdal (Risperidone) 0.5 Mg Tablet 0.5 Mg PO BID 01/19/22 Reported Pravastatin Sodium 20 Mg Tablet 1 Tab PO QHS 01/19/22 Reported Polyethylene Glycol 3350 2,500 Gm Powder 17 Gm PO BID 01/19/22 Reported Ondansetron Hcl 4 Mg Tablet 1 Tab PO PRN Q8HRS PRN 01/19/22 Reported Mirtazapine 30 Mg Tablet 1 Tab PO QHS 01/19/22 Reported Melatonin 3 Mg Tablet 2 Tab PO QHS 01/19/22 Reported Lisinopril 20 Mg Tablet 1 Tab PO BID 01/19/22 Reported Lidocaine PATCH (Lidocaine) 1 Each Adh..patch 2 Each TP PRN BID PRN 01/19/22 Reported REMOVE AFTER 12 HOURS Lamotrigine 150 Mg Tablet 1 Tab PO DAILY 01/19/22 Reported Flonase Allergy Relief (Fluticasone Propionate) 9.9 Ml [place].susp 2 Sprays NS DAILY 01/19/22 Reported Pepcid (Famotidine) 20 Mg Tablet 20 Mg PO HS 01/19/22 Reported Estrace (Estradiol) 42.5 Gm Cream.appl 1 Gm VG QMTHSA 01/19/22 Reported Eliquis (Apixaban) 5 Mg Tablet 5 Mg PO BID 01/19/22 Reported Multaq (Dronedarone Hcl) 400 Mg Tablet 1 Tab PO BID 01/19/22 Reported Carvedilol 25 Mg Tablet 12.5 Mg PO BIDWMEALS 01/19/22 Reported Thera Tears (Carboxymethylcellulose Sodium) 15 Ml Drops 1 Drop EACHEYE DAILY 01/19/22 Reported Calmoseptine Ointment (Menthol/Zinc Oxide) 3.5 Gm Oint.pack 3.5 Gm TP BID 01/19/22 Reported Acetaminophen 325 Mg Tablet 2 Tab PO PRN Q6HRS PRN 30 01/19/22 Reported Comments Chest x-ray reviewed 01/21/2022. Right upper lobe infiltrate and right hilar prominence. Impression . 1. Acute hypercapnic and hypoxic respiratory failure secondary to the sedative effect of multiple medications. In addition, she had aspiration pneumonia 2. Abnormal chest x-ray with infiltrates in the right upper and right perihilar area and some right hilar fullness. Likely aspiration. Cannot exclude mass in the right hilar area. Not an optimal candidate for additional work-up. 3. Acute kidney injury/hypovolemic shock. 4. No significant tobacco history. 5. Dysphagia. Plan . RECOMMENDATIONS: 1. Discussed with RN. Continue with present Venturi mask. 2. Continue with present antibiotics. 3. Status post IV hydration with improvement in her BUN and creatinine. 4. Levophed off 5. We will have to reassess her home medications to avoid any further sedative effects in future. 6. Stress ulcer prophylaxis. 7. DVT prophylaxis with subcutaneous heparin. 8. Consider TPN for nutrition until she is able to eat by mouth. 9. Patient remains DNR. She does not want to have BiPAP either. ALEXIA MO MD Jan 22, 2022 10:26
[2022-01-22 11:48] LABS: CALCIUM 8.9 mg/dL (8.5-10.1); CREATININE 0.8 mg/dL (0.6-1.0); GFR 69.6; POTASSIUM 4.4 mmol/L (3.5-5.1)
[2022-01-22 11:52] LABS: MAGNESIUM 2.3 mg/dL (1.8-2.4); PHOSPHORUS 2.9 mg/dL (2.6-4.7)
[2022-01-22] MEDS: TPN PER PHARMACY MC PRN (12:31)
--- NOTE | 2022-01-22 12:40 | NUR ---
Pharmacy TPN Dosing Note S: LEILANI SANTANA is a 76 year old F Currently receiving Central Continuous TPN started 01/22/22 B:Pertinent PMH: npo Height: 5 feet, 0 inches Weight: 47.0 kg Current diet: npo LABS: Sodium: 145 Potassium: 4.4 Chloride: 113 Calcium: 8.9 Corrected Calcium: 9.70 Magnesium: 2.3 CO2: 29 SCr: 0.8 Glucose: 105 Albumin: 3.0 AST: 39 ALT: 33 TPN FORMULA: TPN TYPE: Central Continuous AMINO ACIDS: 60 gm DEXTROSE: 195 gm LIPIDS: 20 gm SODIUM CHLORIDE: 50 mEq SODIUM ACETATE: mEq SODIUM PHOSPHATE: mmol POTASSIUM CHLORIDE: 20 mEq POTASSIUM ACETATE: mEq POTASSIUM PHOSPHATE: 13.6 mmol MAGNESIUM: 10 mEq CALCIUM: mEq INSULIN: units MULTIPLE VITAMIN: 10 ml TRACE ELEMENTS: 1 ml(s) TPN PLAN: Unable to participate in bedside swallow, TPN to start tonight Na elevated yesterday and 145 today, will start with 50meq NaCl K increased from 3.2 to 4.4 after rec'ing 40meq KCl yesterday, hesitant to put too much K in TPN, will start with 20meq KCl, can replace in the am if needed Other electrolytes standard formula Labs in the am R: Begin TPN as written above. Will monitor electrolytes, glucose, and tolerance to TPN. MIRACLE MAYFIELD RPH, 01/22/22 [id number]
--- NOTE | 2022-01-22 12:45 | NUR ---
Procedure: Following complete explanation of the PICC procedure including the indications, risks, and potential complications, informed consent was obtained. The possibility for infection was discussed along with signs, symptoms, and prevention. All the questions were answered. Written and verbal patient education was provided. yes Hand hygiene performed.yes Standardized central line checklist was utilized.yes The patient was placed in the supine position, the arm was prepped with chlorhexidine and patient draped with maximum sterile barrier. 3 mL 1% lidocaine was infiltrated into the skin to provide local anesthesia. A thorough assessment of right upper extremity completed. Using real-time ultrasound guidance and standardized micro puncture set, the basilic vein was punctured and a peel away sheath was placed using the modified Seldinger technique. A tip location device was used to ensure adequate catheter placement. The catheter was secured using a securement device and an antimicrobial patch was applied directly on the insertion site followed by a transparent dressing. All ports withdraw blood and flush without resistance. Patient tolerated the procedure without apparent complication(s). Triple Lumen Power PICC placement successful and uncomplicated. Placement verified by EKG tip confirmation system and/or chest x-ray. Tip located in the CAJ Complications: none Addendum: 01/22/22 at 1313 by ABBY WINKLER RN Amended: Links added.
--- NOTE | 2022-01-22 12:45 | NUR ---
Identified Allergies and reactions INR 1.4 BUN 26 Cr 0.8 Platelets 127 Blood culture not done blood culture results Order Verified yes Consent signed yes Previous PICC placement no Past Medical/Surgical history and current diagnosis reviewed Patient Medical /Surgical History Related to PICC line placement None Special considerations for PICC line placement None Anticoagulation therapy PICC placement indication g, Poor peripheral intravenous access Total Parenteral Nutrition (TPN) Muna Winkler RN name of PICC Nurse Addendum: 01/22/22 at 1313 by MUNA WINKLER RN Amended: Links added.
[2022-01-22] MEDS: ATORVASTATIN CALCIUM 10 MG TABLET. PO SCH (21:00)
[2022-01-22] MEDS: MIRTAZAPINE 15 MG TABLET PO SCH (21:00)
[2022-01-22] MEDS ORDERED: AMINO ACID IV SCH (22:00)
[2022-01-22] MEDS ORDERED: [UNRECOGNIZED DRUG - OTHER] IV SCH (22:00)
[2022-01-22] MEDS ORDERED: TOTAL PARENTERAL NUTRITION IV SCH (22:00)
[2022-01-22] MEDS ORDERED: DEXTROSE 70% IV SCH (22:00)
[2022-01-22] MEDS: cefTRIAXone IV Push 1 GM VIAL. IVP SCH (22:01)
[2022-01-22] MEDS: FAMOTIDINE 20 MG/2 ML VIAL IVP SCH (22:02)
--- NOTE | 2022-01-22 22:29 | PDOC ---
[facility] PROGRESS NOTE Date of Service DOS: DATE: 01/22/22 TIME: 22:27 Chief Complaint Chief Complaint Acute hypoxic respiratory failure secondary to suspected aspiration pneumonia versus CAP, history of A. fib anxiety bipolar CAD depression GERD hypertension hyperlipidemia hypothyroid -[facility]. Based upon report seems patient has been on decline for a few months -Required intubation in the emergency room. Concern for aspiration pneumonia there -Wide range of antibiotic allergies. Cefepime Flagyl received in ED will continue this for now; will also add on doxycycline -We will continue home meds as indicated, avoid overly sedative medications -Pulmonary consult for vent management -DVT prophylaxis -N.p.o. History of Present Illness History of Present Illness 01/22 Patient evaluated examined at bedside she was extubated yesterday. Recommended she do BiPAP overnight however she refused and eventually elected to go DNR. She was on Ventimask when I saw her. Quite lethargic but was able to tell me that she was not feeling well was having difficulty with breathing. Continue current antimicrobials. Pulmonary following. 01/21 Patient evaluated examined at bedside. She remains intubated. Able to wean off Levophed overnight. Needs some Precedex however planning to wean that this morning. She was easily awoken and seemed to comprehend what I was telling her in regards to the plan. Pulmonary following. Possible extubation in next day or 2. Discussed with bedside RN. 33 minutes of critical care time. 01/20 Patient evaluated examined at bedside. Notably more alert from yesterday today but still intubated. She has had a lot of secretions out of her ET tube. Continue present antibiotics. Remains on Levophed. Try to wean off as tolerated. Pulmonary consulted and evaluated. Continue intubation for now. Discussed with pulmonary physician. Discussed with bedside RN. 35min CC time Vitals/I&O Vitals/I&O: Vital Signs Date Time Temp Pulse Resp B/P (MAP) Pulse Ox O2 Delivery O2 Flow Rate FiO2 01/22/22 15:00 97.7 84 26 148/56 96 Venturi Mask 15.0 97.7 I & O 01/21/22 01/21/22 01/22/22 15:00 23:00 07:00 Intake Total 19 ml Output Total 400 ml 500 ml 280 ml Balance -400 ml -481 ml -280 ml Physical Exam General: Alert, Cooperative Heart: Regular rate Lungs: Other (decreased throughout) Abdomen: Normal bowel sounds, Soft, No tenderness Extremities: No edema, Normal pulses Skin: No significant lesion Labs Labs: Laboratory Tests Test 01/22/22 11:30 Sodium Level 145 mmol/L (136-145) Potassium Level 4.4 mmol/L (3.5-5.1) Chloride Level 113 mmol/L (98-107) Carbon Dioxide Level 29 mmol/L (21-32) Anion Gap 3 (6-14) Blood Urea Nitrogen 29 mg/dL (7-20) Creatinine 0.8 mg/dL (0.6-1.0) Estimated GFR (Cockcroft-Gault) 69.6 Glucose Level 105 mg/dL (70-99) Calcium Level 8.9 mg/dL (8.5-10.1) Phosphorus Level 2.9 mg/dL (2.6-4.7) Magnesium Level 2.3 mg/dL (1.8-2.4) Assessment and Plan Assessmemt and Plan Problems Medical Problems: (1) Acute respiratory failure Status: Acute (2) Aspiration pneumonia Status: Acute (3) Hypotension Status: Acute Comment Review of Relevant I have reviewed the following items lexis (where applicable) has been applied. Medications: Current Medications Medications (Trade) Dose Ordered Sig/Eva Route PRN Reason Start Time Stop Time Status Last Admin Dose Admin Info (Tpn Per Pharmacy) 1 each PRN DAILY PRN MC SEE COMMENTS 01/22/22 10:30 01/22/22 12:31 Sodium Chloride 50 meq/Potassium Chloride 20 meq/ Potassium Phosphate 13.6 mmol/Magnesium Sulfate 10 meq/ Multivitamins 10 ml/Zinc/Copper/ Manganese/ Selenium 1 ml/ Total Parenteral Nutrition/Amino Acids/Dextrose/ Fat Emulsion Intravenous 1,512 ml @ 63 mls/hr TPN CONT IV 01/22/22 22:00 01/23/22 21:59 01/22/22 21:58 Justifications for Admission Other Justification HEATHER TAN MD Jan 22, 2022 22:28
[2022-01-23] VITALS (10 sets, daily range): BP systolic 82–198; BP diastolic 43–89
[2022-01-23 06:36] LABS: CALCIUM 8.6 mg/dL (8.5-10.1); CREATININE 0.8 mg/dL (0.6-1.0); GFR 69.6; MAGNESIUM 2.3 mg/dL (1.8-2.4); PHOSPHORUS 1.8 mg/dL (2.6-4.7); POTASSIUM 4.2 mmol/L (3.5-5.1)
[2022-01-23] MEDS: CARVEDILOL 12.5 MG TABLET. PO SCH ×2 (08:00→17:00)
[2022-01-23] MEDS ORDERED: IV DEXTROSE 5% 250 ML BAG. IV PRN (08:15)
[2022-01-23] MEDS ORDERED: DEXTROSE 50% 25 GM / 50ML DISP.SYRIN. IV PRN (08:15)
[2022-01-23] MEDS: INSULIN LISPRO 300 UNITS/3 ML VIAL. SQ SCH ×3 (08:50→17:34)
[2022-01-23] MEDS: APIXABAN 5 MG TABLET. PO SCH (09:00)
[2022-01-23] MEDS: DRONEDARONE HCL 400 MG TABLET PO SCH ×2 (09:00→19:48)
[2022-01-23] MEDS: ELECTROLYTE (ICU) PROTOCOL. MC SCH (09:00)
[2022-01-23] MEDS: LISINOPRIL 20 MG TABLET PO SCH ×2 (09:00→19:48)
[2022-01-23] MEDS: POLYVINYL ALCOHOL 1.4% OPHTH SOLUTION 15ML BOTTLE. OU SCH (09:00)
[2022-01-23] MEDS: SENNOSIDES/DOCUSATE 8.6/50MG TABLET. PO SCH ×2 (09:00→19:50)
[2022-01-23] MEDS: lamoTRIgine 100 MG TABLET. PO SCH (09:00)
[2022-01-23] MEDS: risperiDONE 1 MG TABLET. PO SCH ×3 (09:00→19:49)
--- NOTE | 2022-01-23 09:45 | NUR ---
SS following up with discharge planning. SS reviewed pt chart and discussed with pt RN. Pt is currently requiring oxygen at five liters nasal canula. Pt on IV Rocephin and IV Doxycycline. DNR/DNI. Pulmonology following. NPO. TPN. ST following. Pt is skilled rehabilitation resident from [facility], ; fax [phone]. PT/OT orders requested. SS will continue to follow for discharge planning.
[2022-01-23] MEDS ORDERED: POTASSIUM PHOSPHATE DIBASIC 15 MMOL in IV NS 100 ML IV ONE (10:00)
[2022-01-23] MEDS: DOXYCYCLINE HYCLATE 100 MG in IV DEXTROSE 5% 100ML 100 ML IV SCH ×2 (10:07→21:59)
--- NOTE | 2022-01-23 10:22 | PDOC ---
PULMONARY PROGRESS NOTES DATE: 01/23/22 TIME: 10:20 Subjective Patient was extubated 01/21. She did required BiPAP but then declined to wear the BiPAP. Her brother was notified and he agreed with patient's wishes and made her DNR. Now on nasal canula more awake Vitals Vital Signs Date Time Temp Pulse Resp B/P (MAP) Pulse Ox O2 Delivery O2 Flow Rate FiO2 01/23/22 03:00 98.1 96 24 198/89 97 High Flow Nasal Cannula 8.0 98.1 General: Alert, No acute distress Lungs: Other (decreased throughout) Cardiovascular: S1, S2 Abdomen: Soft Extremities: No Edema Skin: Warm Labs Laboratory Tests Test 01/21/22 11:38 01/22/22 11:30 01/23/22 06:10 01/23/22 08:44 O2 Saturation 95 % (92-99) Arterial Blood pH 7.34 (7.35-7.45) Arterial Blood pCO2 at Patient Temp 38 mmHg (35-46) Arterial Blood pO2 at Patient Temp 81 mmHg (65-108) Arterial Blood HCO3 20 mmol/L (21-28) Arterial Blood Base Excess -5 mmol/L (-3-3) FiO2 40 Sodium Level 145 mmol/L (136-145) 149 mmol/L (136-145) Potassium Level 4.4 mmol/L (3.5-5.1) 4.2 mmol/L (3.5-5.1) Chloride Level 113 mmol/L (98-107) 115 mmol/L (98-107) Carbon Dioxide Level 29 mmol/L (21-32) 29 mmol/L (21-32) Anion Gap 3 (6-14) 5 (6-14) Blood Urea Nitrogen 29 mg/dL (7-20) 26 mg/dL (7-20) Creatinine 0.8 mg/dL (0.6-1.0) 0.8 mg/dL (0.6-1.0) Estimated GFR (Cockcroft-Gault) 69.6 69.6 Glucose Level 105 mg/dL (70-99) 259 mg/dL (70-99) Calcium Level 8.9 mg/dL (8.5-10.1) 8.6 mg/dL (8.5-10.1) Phosphorus Level 2.9 mg/dL (2.6-4.7) 1.8 mg/dL (2.6-4.7) Magnesium Level 2.3 mg/dL (1.8-2.4) 2.3 mg/dL (1.8-2.4) Triglycerides Level 145 mg/dL (0-150) Glucose (Fingerstick) 180 mg/dL (70-99) Laboratory Tests Test 01/22/22 11:30 01/23/22 06:10 01/23/22 08:44 Sodium Level 145 mmol/L (136-145) 149 mmol/L (136-145) Potassium Level 4.4 mmol/L (3.5-5.1) 4.2 mmol/L (3.5-5.1) Chloride Level 113 mmol/L (98-107) 115 mmol/L (98-107) Carbon Dioxide Level 29 mmol/L (21-32) 29 mmol/L (21-32) Anion Gap 3 (6-14) 5 (6-14) Blood Urea Nitrogen 29 mg/dL (7-20) 26 mg/dL (7-20) Creatinine 0.8 mg/dL (0.6-1.0) 0.8 mg/dL (0.6-1.0) Estimated GFR (Cockcroft-Gault) 69.6 69.6 Glucose Level 105 mg/dL (70-99) 259 mg/dL (70-99) Calcium Level 8.9 mg/dL (8.5-10.1) 8.6 mg/dL (8.5-10.1) Phosphorus Level 2.9 mg/dL (2.6-4.7) 1.8 mg/dL (2.6-4.7) Magnesium Level 2.3 mg/dL (1.8-2.4) 2.3 mg/dL (1.8-2.4) Triglycerides Level 145 mg/dL (0-150) Glucose (Fingerstick) 180 mg/dL (70-99) Medications Active Scripts Medications Dose Route/Sig Max Daily Dose Days Date Category Dose Instructions Tramadol Hcl 50 Mg Tablet 50 Mg PO Q6HRS PRN 01/19/22 Reported Tizanidine Hcl 2 Mg Capsule 2 Mg PO TID PRN 01/19/22 Reported Simethicone 80 Mg Tab.chew 2 Tab PO TID 1 01/19/22 Reported Senokot-S Tablet (Sennosides/Docusate Sodium) 1 Each Tablet 2 Tab PO BID 30 01/19/22 Reported Ropinirole Hcl 4 Mg Tablet 4 Mg PO QHS 01/19/22 Reported Ropinirole Hcl 1 Mg Tablet 1 Mg PO DAILY 01/19/22 Reported Risperdal (Risperidone) 0.5 Mg Tablet 0.5 Mg PO QHS 01/19/22 Reported Risperdal (Risperidone) 0.5 Mg Tablet 0.5 Mg PO BID 01/19/22 Reported Pravastatin Sodium 20 Mg Tablet 1 Tab PO QHS 01/19/22 Reported Polyethylene Glycol 3350 2,500 Gm Powder 17 Gm PO BID 01/19/22 Reported Ondansetron Hcl 4 Mg Tablet 1 Tab PO PRN Q8HRS PRN 01/19/22 Reported Mirtazapine 30 Mg Tablet 1 Tab PO QHS 01/19/22 Reported Melatonin 3 Mg Tablet 2 Tab PO QHS 01/19/22 Reported Lisinopril 20 Mg Tablet 1 Tab PO BID 01/19/22 Reported Lidocaine PATCH (Lidocaine) 1 Each Adh..patch 2 Each TP PRN BID PRN 01/19/22 Reported REMOVE AFTER 12 HOURS Lamotrigine 150 Mg Tablet 1 Tab PO DAILY 01/19/22 Reported Flonase Allergy Relief (Fluticasone Propionate) 9.9 Ml [place].susp 2 Sprays NS DAILY 01/19/22 Reported Pepcid (Famotidine) 20 Mg Tablet 20 Mg PO HS 01/19/22 Reported Estrace (Estradiol) 42.5 Gm Cream.appl 1 Gm VG QMTHSA 01/19/22 Reported Eliquis (Apixaban) 5 Mg Tablet 5 Mg PO BID 01/19/22 Reported Multaq (Dronedarone Hcl) 400 Mg Tablet 1 Tab PO BID 01/19/22 Reported Carvedilol 25 Mg Tablet 12.5 Mg PO BIDWMEALS 01/19/22 Reported Thera Tears (Carboxymethylcellulose Sodium) 15 Ml Drops 1 Drop EACHEYE DAILY 01/19/22 Reported Calmoseptine Ointment (Menthol/Zinc Oxide) 3.5 Gm Oint.pack 3.5 Gm TP BID 01/19/22 Reported Acetaminophen 325 Mg Tablet 2 Tab PO PRN Q6HRS PRN 30 01/19/22 Reported Comments Chest x-ray reviewed 01/21/2022. Right upper lobe infiltrate and right hilar prominence. Impression . 1. Acute hypercapnic and hypoxic respiratory failure secondary to the sedative effect of multiple medications. In addition, she had aspiration pneumonia 2. Abnormal chest x-ray with infiltrates in the right upper and right perihilar area and some right hilar fullness. Likely aspiration. Cannot exclude mass in the right hilar area. Not an optimal candidate for additional work-up. 3. Acute kidney injury/hypovolemic shock. 4. No significant tobacco history. 5. Dysphagia. Plan . RECOMMENDATIONS: 1. Discussed with RN. Continue with present nasal canula 2. Continue with present antibiotics. 3. Status post IV hydration with improvement in her BUN and creatinine. 4. Levophed off 5. We will have to reassess her home medications to avoid any further sedative effects in future. 6. Stress ulcer prophylaxis. 7. DVT prophylaxis with subcutaneous heparin. 8. TPN for nutrition until she is able to eat by mouth. 9. Patient remains DNR. can transfer to floor ALEXIA MO MD Jan 23, 2022 10:22
--- NOTE | 2022-01-23 10:56 | PDOC ---
[facility] PROGRESS NOTE Date of Service DOS: DATE: 01/23/22 TIME: 10:55 Chief Complaint Chief Complaint Acute hypoxic respiratory failure secondary to suspected aspiration pneumonia versus CAP, history of A. fib anxiety bipolar CAD depression GERD hypertension hyperlipidemia hypothyroid -[facility]. Based upon report seems patient has been on decline for a few months -Required intubation in the emergency room. Concern for aspiration pneumonia there -Wide range of antibiotic allergies. Cefepime Flagyl received in ED will continue this for now; will also add on doxycycline -We will continue home meds as indicated, avoid overly sedative medications -Pulmonary consult for vent management -DVT prophylaxis -N.p.o. History of Present Illness History of Present Illness 01/23 Patient evaluated examined at bedside. She was on nasal cannula in bed. Was asking me for water. Do not believe she has been cleared for p.o. intake yet. Continue current plan of antimicrobials as needed breathing treatments. Can transfer to floor. Pulmonary following. 01/22 Patient evaluated examined at bedside she was extubated yesterday. Recommended she do BiPAP overnight however she refused and eventually elected to go DNR. She was on Ventimask when I saw her. Quite lethargic but was able to tell me that she was not feeling well was having difficulty with breathing. Continue current antimicrobials. Pulmonary following. 01/21 Patient evaluated examined at bedside. She remains intubated. Able to wean off Levophed overnight. Needs some Precedex however planning to wean that this morning. She was easily awoken and seemed to comprehend what I was telling her in regards to the plan. Pulmonary following. Possible extubation in next day or 2. Discussed with bedside RN. 33 minutes of critical care time. 01/20 Patient evaluated examined at bedside. Notably more alert from yesterday today but still intubated. She has had a lot of secretions out of her ET tube. Continue present antibiotics. Remains on Levophed. Try to wean off as tolerated. Pulmonary consulted and evaluated. Continue intubation for now. Discussed with pulmonary physician. Discussed with bedside RN. 35min CC time Vitals/I&O Vitals/I&O: Vital Signs Date Time Temp Pulse Resp B/P (MAP) Pulse Ox O2 Delivery O2 Flow Rate FiO2 01/23/22 07:00 97.7 97 20 194/86 100 High Flow Nasal Cannula 6.0 97.7 I & O 01/22/22 01/22/22 01/23/22 15:00 23:00 07:00 Intake Total 100 ml 300 ml 910 ml Output Total 400 ml 100 ml 1175 ml Balance -300 ml 200 ml -265 ml Physical Exam General: Alert, Cooperative Heart: Regular rate Lungs: Other (decreased throughout) Abdomen: Normal bowel sounds, Soft, No tenderness Extremities: No edema, Normal pulses Skin: No significant lesion Labs Labs: Laboratory Tests Test 01/22/22 11:30 01/23/22 06:10 01/23/22 08:44 Sodium Level 145 mmol/L (136-145) 149 mmol/L (136-145) Potassium Level 4.4 mmol/L (3.5-5.1) 4.2 mmol/L (3.5-5.1) Chloride Level 113 mmol/L (98-107) 115 mmol/L (98-107) Carbon Dioxide Level 29 mmol/L (21-32) 29 mmol/L (21-32) Anion Gap 3 (6-14) 5 (6-14) Blood Urea Nitrogen 29 mg/dL (7-20) 26 mg/dL (7-20) Creatinine 0.8 mg/dL (0.6-1.0) 0.8 mg/dL (0.6-1.0) Estimated GFR (Cockcroft-Gault) 69.6 69.6 Glucose Level 105 mg/dL (70-99) 259 mg/dL (70-99) Calcium Level 8.9 mg/dL (8.5-10.1) 8.6 mg/dL (8.5-10.1) Phosphorus Level 2.9 mg/dL (2.6-4.7) 1.8 mg/dL (2.6-4.7) Magnesium Level 2.3 mg/dL (1.8-2.4) 2.3 mg/dL (1.8-2.4) Triglycerides Level 145 mg/dL (0-150) Glucose (Fingerstick) 180 mg/dL (70-99) Assessment and Plan Assessmemt and Plan Problems Medical Problems: (1) Acute respiratory failure Status: Acute (2) Aspiration pneumonia Status: Acute (3) Hypotension Status: Acute Comment Review of Relevant I have reviewed the following items lexis (where applicable) has been applied. Medications: Current Medications Medications (Trade) Dose Ordered Sig/Eva Route PRN Reason Start Time Stop Time Status Last Admin Dose Admin Sodium Chloride 50 meq/Potassium Chloride 20 meq/ Potassium Phosphate 13.6 mmol/Magnesium Sulfate 10 meq/ Multivitamins 10 ml/Zinc/Copper/ Manganese/ Selenium 1 ml/ Total Parenteral Nutrition/Amino Acids/Dextrose/ Fat Emulsion Intravenous 1,512 ml @ 63 mls/hr TPN CONT IV 01/22/22 22:00 01/23/22 21:59 01/22/22 21:58 Insulin Human Lispro (HumaLOG) 0-5 UNITS TIDWMEALS SQ 01/23/22 08:00 01/23/22 08:50 Justifications for Admission Other Justification HEATHER TAN MD Jan 23, 2022 10:56
[2022-01-23] MEDS: TPN PER PHARMACY MC PRN (12:48)
--- NOTE | 2022-01-23 12:57 | NUR ---
Pharmacy TPN Dosing Note S: LEILANI SANTANA is a 76 year old F Currently receiving Central Continuous TPN started 01/22/22 B:Pertinent PMH: npo Height: 5 feet, 0 inches Weight: 44.8 kg Current diet: npo LABS: Sodium: 149 Potassium: 4.2 Chloride: 115 Calcium: 8.6 Corrected Calcium: 9.40 Magnesium: 2.3 CO2: 29 SCr: 0.8 Glucose: 180 Albumin: 3.0 AST: 39 ALT: 33 TPN FORMULA: TPN TYPE: Central Continuous AMINO ACIDS: 60 gm DEXTROSE: 195 gm LIPIDS: 20 gm POTASSIUM CHLORIDE: 20 mEq POTASSIUM PHOSPHATE: 15 mmol MAGNESIUM: 10 mEq MULTIPLE VITAMIN: 10 ml TRACE ELEMENTS: 1 ml(s) TPN PLAN: Sodium removed and potassium phos increased in TPN Kph[place] 15mmol IVPB 1x per labs R: Change TPN per plan and ordered formula Will monitor electrolytes, glucose, and tolerance to TPN. Taylor Ennis [facility], 01/23/22 1257
[2022-01-23] MEDS: HEPARIN for SUB-Q USE 5,000 UNIT/ML VIAL. SQ SCH ×2 (14:41→21:58)
[2022-01-23] MEDS: ATORVASTATIN CALCIUM 10 MG TABLET. PO SCH (19:47)
[2022-01-23] MEDS: MIRTAZAPINE 15 MG TABLET PO SCH (19:49)
[2022-01-23] MEDS ORDERED: DEXTROSE 70% IV SCH (22:00)
[2022-01-23] MEDS ORDERED: [UNRECOGNIZED DRUG - OTHER] IV SCH (22:00)
[2022-01-23] MEDS ORDERED: AMINO ACID IV SCH (22:00)
[2022-01-23] MEDS ORDERED: TOTAL PARENTERAL NUTRITION IV SCH (22:00)
[2022-01-23] MEDS: FAMOTIDINE 20 MG/2 ML VIAL IVP SCH (22:02)
[2022-01-23] MEDS: cefTRIAXone IV Push 1 GM VIAL. IVP SCH (22:03)
--- NOTE | 2022-01-24 00:14 | NUR ---
Patient's sats alarmed 77% at 2245. Checked on patient and found agonal breathing and unresponsive. Patient's oxygen turned from 6L/HFNC to 15L/HFNC and paged respiratory therapy. At 2250, patient's vitals were HR 30, BP 82/43, oxygen saturation 15%. Attempted to notify patient's brother at that time and had to leave a message. Patient declined rapidly and HR/monitor showed asystole at 2256. Charge nurse Janette and this nurse attempted to auscultate heart tones and were unable to hear any. Unable to get another BP after the one at 2250. Answering service for Dr. Holden contacted at [phone] and a page was sent to Dr. Johnson. [facility] was contacted at [phone] on 01-24-2022, and was cleared to release patient's body as she was not a candidate for donation. Addendum: 01/24/22 at 0024 by RAH YEAGER RN Patient's brother was contacted two more times before reaching him to notify of patient's passing at 0000. Brother Avinash Ledesma will notify nursing supervisor power reactor with home decision and declines coming to see the patient.
--- NOTE | 2022-02-04 12:01 | PDOC3 ---
[facility]-Discharge Summary Date of Admission: Date of Admission: Jan 19, 2022 Date of Discharge: Date of Discharge: Jan 24, 2022 Admission Diagnosis: Admitting Diagnosis: Respiratory failure Hospital Course: Hospital Course: Acute hypoxic respiratory failure secondary to suspected aspiration pneumonia versus CAP, history of A. fib anxiety bipolar CAD depression GERD hypertension hyperlipidemia hypothyroid -[facility]. Based upon report seems patient has been on decline for a few months -Required intubation in the emergency room. Concern for aspiration pneumonia there -Wide range of antibiotic allergies. Cefepime Flagyl received in ED will continue this for now; will also add on doxycycline -We will continue home meds as indicated, avoid overly sedative medications -Pulmonary consult for vent management -DVT prophylaxis -N.p.o. History of Present Illness History of Present Illness 01/24 Patient had desaturation episode that brought her O2 saturation down to 15%. Despite interventions she went asystolic and was unable to be resuscitated. . 01/23 Patient evaluated examined at bedside. She was on nasal cannula in bed. Was asking me for water. Do not believe she has been cleared for p.o. intake yet. Continue current plan of antimicrobials as needed breathing treatments. Can transfer to floor. Pulmonary following. 01/22 Patient evaluated examined at bedside she was extubated yesterday. Recommended she do BiPAP overnight however she refused and eventually elected to go DNR. She was on Ventimask when I saw her. Quite lethargic but was able to tell me that she was not feeling well was having difficulty with breathing. Continue current antimicrobials. Pulmonary following. 01/21 Patient evaluated examined at bedside. She remains intubated. Able to wean off Levophed overnight. Needs some Precedex however planning to wean that this morning. She was easily awoken and seemed to comprehend what I was telling her in regards to the plan. Pulmonary following. Possible extubation in next day or 2. Discussed with bedside RN. 33 minutes of critical care time. 01/20 Patient evaluated examined at bedside. Notably more alert from yesterday today but still intubated. She has had a lot of secretions out of her ET tube. Continue present antibiotics. Remains on Levophed. Try to wean off as tolerated. Pulmonary consulted and evaluated. Continue intubation for now. Discussed with pulmonary physician. Discussed with bedside RN. 35min CC time Disposition: Disposition/Orders: Activity: Activity: Resume previous activity Medications: Home Meds Reported Medications Tramadol Hcl (TRAMADOL HCL) 50 Mg Tablet, 50 MG PO Q6HRS PRN for PAIN, TAB 01/19/22 Tizanidine Hcl (TIZANIDINE HCL) 2 Mg Capsule, 2 MG PO TID PRN for MUSCLE SPASMS, CAP 01/19/22 Simethicone (SIMETHICONE) 80 Mg Tab.chew, 2 TAB PO TID for gas for 1 Day, #2 TAB 0 Refills 01/19/22 Sennosides/Docusate Sodium (SENOKOT-S TABLET) 1 Each Tablet, 2 TAB PO BID for constipation for 30 Days, #120 TAB 0 Refills 01/19/22 Ropinirole Hcl (ROPINIROLE HCL) 4 Mg Tablet, 4 MG PO QHS for rls, TAB 01/19/22 Ropinirole Hcl (ROPINIROLE HCL) 1 Mg Tablet, 1 MG PO DAILY for rls, TAB 01/19/22 Risperidone (RISPERDAL) 0.5 Mg Tablet, 0.5 MG PO QHS for MOOD STABILIZER, TAB 01/19/22 Risperidone (RISPERDAL) 0.5 Mg Tablet, 0.5 MG PO BID for MOOD STABILIZER, TAB 01/19/22 Pravastatin Sodium (PRAVASTATIN SODIUM) 20 Mg Tablet, 1 TAB PO QHS for hld, #90 TAB 1 Refill 01/19/22 Polyethylene Glycol 3350 (POLYETHYLENE GLYCOL 3350) 2,500 Gm Powder, 17 GM PO BID for constipation, #255 GM 0 Refills 01/19/22 Ondansetron Hcl (ONDANSETRON HCL) 4 Mg Tablet, 1 TAB PO PRN Q8HRS PRN for [place] SEA/VOMITING, #10 TAB 1 Refill 01/19/22 Mirtazapine (MIRTAZAPINE) 30 Mg Tablet, 1 TAB PO QHS for depression, #30 TAB 1 Refill 01/19/22 Melatonin (MELATONIN) 3 Mg Tablet, 2 TAB PO QHS for insomnia, #30 TAB 2 Refills 01/19/22 Lisinopril (LISINOPRIL) 20 Mg Tablet, 1 TAB PO BID for htn, #90 TAB 1 Refill 01/19/22 Lidocaine (Lidocaine PATCH ) 1 Each Adh..patch, 2 EACH TP PRN BID PRN for PAIN, PATCH REMOVE AFTER 12 HOURS 01/19/22 Lamotrigine (LAMOTRIGINE) 150 Mg Tablet, 1 TAB PO DAILY for bipolar, #30 TAB 1 Refill 01/19/22 Fluticasone Propionate (Flonase Allergy Relief) 9.9 Ml [place].susp, 2 SPRAYS NS DAILY for allergy, ML 01/19/22 Famotidine (PEPCID) 20 Mg Tablet, 20 MG PO HS for heartburn, TAB 01/19/22 Estradiol (ESTRACE) 42.5 Gm Cream.appl, 1 GM VG QMTHSA for vaginal dryness, #1 EACH 11 Refills 01/19/22 Apixaban (ELIQUIS) 5 Mg Tablet, 5 MG PO BID for afib, TAB 01/19/22 Dronedarone Hcl (MULTAQ) 400 Mg Tablet, 1 TAB PO BID for antiarrhythmic, #180 TAB 1 Refill 01/19/22 Carvedilol (CARVEDILOL) 25 Mg Tablet, 12.5 MG PO BIDWMEALS for CARDIAC, TAB 01/19/22 Carboxymethylcellulose Sodium (THERA TEARS) 15 Ml Drops, 1 DROP EACHEYE DAILY for dry eye, #30 ML 0 Refills 01/19/22 Menthol/Zinc Oxide (CALMOSEPTINE OINTMENT) 3.5 Gm Oint.pack, 3.5 GM TP BID for p ressure ulcer, MISC 01/19/22 Acetaminophen (ACETAMINOPHEN) 325 Mg Tablet, 2 TAB PO PRN Q6HRS PRN for pain or fever for 30 Days, #30 TAB 0 Refills 01/19/22 Scheduled Apixaban (Eliquis), 5 MG PO BID, (Reported) Carboxymethylcellulose Sodium (Thera Tears), 1 DROP EACHEYE DAILY, (Reported) Carvedilol (Carvedilol), 12.5 MG PO BIDWMEALS, (Reported) Dronedarone Hcl (Multaq), 1 TAB PO BID, (Reported) Estradiol (Estrace), 1 GM VG QMTHSA, (Reported) Famotidine (Pepcid), 20 MG PO HS, (Reported) Fluticasone Propionate (Flonase Allergy Relief), 2 SPRAYS NS DAILY, (Reported) Lamotrigine (Lamotrigine), 1 TAB PO DAILY, (Reported) Lisinopril (Lisinopril), 1 TAB PO BID, (Reported) Melatonin (Melatonin), 2 TAB PO QHS, (Reported) Menthol/Zinc Oxide (Calmoseptine Ointment), 3.5 GM TP BID, (Reported) Mirtazapine (Mirtazapine), 1 TAB PO QHS, (Reported) Polyethylene Glycol 3350 (Polyethylene Glycol 3350), 17 GM PO BID, (Reported) Pravastatin Sodium (Pravastatin Sodium), 1 TAB PO QHS, (Reported) Risperidone (Risperdal), 0.5 MG PO BID, (Reported) Risperidone (Risperdal), 0.5 MG PO QHS, (Reported) Ropinirole Hcl (Ropinirole Hcl), 1 MG PO DAILY, (Reported) Ropinirole Hcl (Ropinirole Hcl), 4 MG PO QHS, (Reported) Sennosides/Docusate Sodium (Senokot-S Tablet), 2 TAB PO BID, (Reported) Simethicone (Simethicone), 2 TAB PO TID, (Reported) Scheduled PRN Acetaminophen (Acetaminophen), 2 TAB PO PRN Q6HRS PRN for pain or fever, (Reported) Lidocaine (Lidocaine PATCH ), 2 EACH TP PRN BID PRN for PAIN, (Reported) Ondansetron Hcl (Ondansetron Hcl), 1 TAB PO PRN Q8HRS PRN for NAUSEA/VOMITING, (Reported) Tizanidine Hcl (Tizanidine Hcl), 2 MG PO TID PRN for MUSCLE SPASMS, (Reported) Tramadol Hcl (Tramadol Hcl), 50 MG PO Q6HRS PRN for PAIN, (Reported) Justicifation of Admission Dx: Justifications for Admission: Justification of Admission Dx: Yes (respiratory failure) HEATHER TAN MD Feb 04, 2022 12:01
== END 2022-01-24 01:48 | DRG 208 ==
LOC: ER 13:54 → 1 WEST ICU 14:40
PROVIDERS: ADMIT Student in an Organized Health Care Education/Training Program; ATTEND Student in an Organized Health Care Education/Training Program
PROC: 5A1945Z Respiratory Ventilation, 24-96 Consecutive Hours (ICD-10-PCS; principal; 2022-01-19)
PROC: 0BH17EZ Insertion of Endotracheal Airway into Trachea, Via Natural or Artificial Opening (ICD-10-PCS; 2022-01-19)
PROC: 5A09357 Assistance with Respiratory Ventilation, Less than 24 Consecutive Hours, Continuous Positive Airway Pressure (ICD-10-PCS; 2022-01-21)
PROC: 5A0935A Assistance with Respiratory Ventilation, Less than 24 Consecutive Hours, High Flow/Velocity Cannula (ICD-10-PCS; 2022-01-22)
PROC: 5A0935A Assistance with Respiratory Ventilation, Less than 24 Consecutive Hours, High Flow/Velocity Cannula (ICD-10-PCS; 2022-01-23)
DX: J69.0 Pneumonitis due to inhalation of food and vomit (principal); J96.01 Acute respiratory failure with hypoxia; J96.02 Acute respiratory failure with hypercapnia; J98.11 Atelectasis; N17.9 Acute kidney failure, unspecified; Z20.822 Contact with and (suspected) exposure to COVID-19; E03.9 Hypothyroidism, unspecified; E78.00 Pure hypercholesterolemia, unspecified; E78.5 Hyperlipidemia, unspecified; F40.00 Agoraphobia, unspecified; G25.81 Restless legs syndrome; I10 Essential (primary) hypertension; I25.10 Atherosclerotic heart disease of native coronary artery without angina pectoris; I48.91 Unspecified atrial fibrillation; R13.10 Dysphagia, unspecified; R57.1 Hypovolemic shock; Z66 Do not resuscitate; Z79.01 Long term (current) use of anticoagulants; Z87.19 Personal history of other diseases of the digestive system; Z90.49 Acquired absence of other specified parts of digestive tract; Z90.710 Acquired absence of both cervix and uterus; F41.9 Anxiety disorder, unspecified; K21.9 Gastro-esophageal reflux disease without esophagitis; M19.90 Unspecified osteoarthritis, unspecified site; F31.9 Bipolar disorder, unspecified; I46.9 Cardiac arrest, cause unspecified
CPT/HCPCS: 31500; 36415; 36556; 36569; 36600; 51702; 71045; 80048; 80053; 81001; 82805; 82962; 83605; 83735; 83880; 84100; 84478; 84484; 85025; 85610; 85730; 87040; 87086; 93005; 94002; 94003; 94660; 94760; 96361; 96365; J0692; J0696; J1644; J1815; J2060; J2250; J2310; J3475; J3480; J3490; J7030; J7040; J7060; 99285-25; G0378